=== PATIENT | female | born 1990 | race Caucasian/White ===

== ENCOUNTER 2019-10-10 23:22 | Emergency (ER) | payer MEDICAID, SELFPAY ==
[2019-10-10 23:53] VITALS: BP 110/66; PULSE 106; RESP 18; TEMP 37.3; O2SAT 99; BMI 22.3
--- NOTE | 2019-10-11 00:34 | ED_ITS ---
HPI - General Adult General: Chief complaint: Upper Respiratory Infection Stated complaint: Body aches, SAMPSON, 6 weeks preg, abd pain Time Seen by Provider: 10/11/19 00:34 History of Present Illness: HPI narrative: Patient complains of cough last few days muscle aches chills slight fever patient is 6 weeks . Patient complains of some abdominal discomfort. Patient denies any vaginal bleeding vaginal discharge or pelvic pain. Patient is a smoker. Patient does have some nausea but is able to keep fluids down has lost her appetite. Was placed on Reglan by Dr. León Merrill for her nausea vomiting. Patient is not taking that medication. MD complaint: cough Onset (ago): day(s) Severity: moderate Associated symptoms: Reports cough, decreased appetite, fevers/chills and nausea; Deny chest pain, dyspnea, headache(s) or rash Review of Systems Const: Denies: fever, chills or body aches Eyes: Denies: change in vision or blurry vision ENMT: Denies: throat pain or nasal congestion Card: Denies: chest pain or shortness of breath on exertion Resp: Reports: non-productive cough and chest congestion; Denies: shortness of breath or productive cough GI: Reports: nausea Musc: Denies: extremity pain Skin/Breast: Denies: rash Neuro: Denies: headache Psych: Denies: anxiety or depression Fede/Lymph: Denies: easy bruising PFSH ED PFSH: Statuses (acute, chronic, etc) shown below reflect problem list status as previously entered and may not be historically accurate Social History Smoking and tobacco status: current every day smoker Female Reproductive History: Date of last menstrual period: 09/04/19 Physical Exam Const: COMMON NORMALS: no apparent distress, average body habitus and oriented x3 HENMT: COMMON NORMALS: normocephalic HEAD & SCALP: normal to inspection and normocephalic FACE & SINUS: normal facial exam Eye: COMMON NORMALS: conjunctivae normal GENERAL EYE: normal appearance of both eyes CONJUNCTIVA: Yes conjunctivae normal Neck/C-Spine: COMMON NORMALS: no JVD Chest: COMMONS NORMALS: inspection of chest normal Resp: COMMON NORMALS: normal respiratory effort AUSCULTATION: rhonchi (mild) lower bilaterally Cardio: COMMON NORMALS: no JVD, regular rate and regular rhythm RATE: regular rate RHYTHM: regular rhythm GI: COMMON NORMALS: normal to inspection, nondistended, normoactive bowel s ounds Extremity: COMMON NORMALS: normal to inspection and full ROM Neuro: COMMON NORMALS: oriented x3 Course Vital Signs: Vital signs: Vital Signs Temperature 99.2 F 10/10/19 23:53 Pulse Rate 106 H 10/10/19 23:53 Respiratory Rate 18 10/10/19 23:53 Blood Pressure 110/66 10/10/19 23:53 Pulse Oximetry 99 10/10/19 23:53 Discharge Plan Discharge Prescriptions: No Action 28 mg iron- 800 mcg Tablet 1 tab PO DAILY RF: 0 Coding Level of Care Code ED Senior Systems Developer for Messi Ramírez
[2019-10-11 00:41] VITALS: BP 120/79; PULSE 102; RESP 20; O2SAT 98
[2019-10-11] MEDS: ondansetron 2 mg/ML SDV 2 mL 4 MG IVP (00:55)
[2019-10-11] MEDS: sodium chloride 0.9% 1,000 ML 999 ML IV (00:56)
[2019-10-11 01:12] LABS: Basophils # 0.1 10^3/uL (0.0-0.1); Basophils % 0.6 %; Eosinophils # 0.1 10^3/uL (0.0-0.8); Eosinophils % 1.7 %; Hematocrit 37.4 % (37.0-47.0); Hemoglobin 12.9 g/dL (11.5-15.3); Lymphocytes # 2.6 10^3/uL (0.8-4.8); Lymphocytes % 31.7 %; Mean Corpuscular HGB Conc 34.5 g/dL (30.0-36.0); Mean Corpuscular Hemoglobin 31.7 pg (28.0-34.0); Mean Corpuscular Volume 91.9 fL (81-99); Mean Platelet Volume 10.7 fL (7.4-10.4); Monocytes # 0.4 10^3/uL (0.2-0.9); Monocytes % 4.9 %; Neutrophils # 5.1 10^3/uL (1.8-7.7); Neutrophils % 60.9 %; Nucleated Red Blood Cells % 0 %; Platelet Count 169 10^3/cmm (130-400); Red Blood Count 4.07 10^6/uL (4.1-5.3); Red Cell Distribution Width 11.3 % (12.1-15.1); White Blood Count 8.3 10^3/uL (4.0-10.0)
[2019-10-11 01:15] LABS: Alanine Aminotransferase 19 U/L (0-33); Albumin Level 4.3 g/dL (3.5-5.2); Alkaline Phosphatase 85 IU/L (35-105); Anion Gap 15.6 (5-19); Blood Urea Nitrogen 7 mg/dL (6-20); Calcium 9.6 mg/Dl (8.6-10.0); Carbon Dioxide 23 mmol/L (22-29); Chloride 99 mmol/L (98-107); Globulin 2.9 g/dL (1.3-4.6); Glomerular Filtration Rate 146.9 mL/min (90-130); Glucose 95 mg/dL (74-109); Potassium 3.6 mmol/L (3.5-5.1); Sodium 134 mmol/L (136-145); Total Bilirubin 0.3 mg/dL (0.15-1.2); Total Protein 7.2 g/dL (6.6-8.7)
[2019-10-11 01:37] LABS: Add Urine Microscopic? NO
[2019-10-11 01:38] LABS: Bilirubin Urine Neg (NEGATIVE); Blood Urine Neg (Negative); Glucose Urine UA Norm (Normal); Ketones Urine Negative (Negative); Leukocyte Esterase Urine Negative (Negative); Nitrate Urine Negative (Negative); Protein Urine Neg (Negative); Urine Appearance Clear (CLEAR); Urine Color Yellow (Yellow); Urobilinogen Urine Norm (Negative); pH Urine 6.5 (5-7)
[2019-10-11 01:54] LABS: Aspartate Amino Transferase 26 U/L (0-32)
[2019-10-11 02:03] VITALS: BP 120/79; PULSE 102; RESP 18; TEMP 36.8; O2SAT 99
== END 2019-10-11 02:08 | disposition home or self-care (01) ==
PROVIDERS: Emergency Provider Nurse Practitioner Family
DX: O26.891 Other specified pregnancy related conditions, first trimester (principal); R10.9 Unspecified abdominal pain; R50.9 Fever, unspecified; Z3A.01 Less than 8 weeks gestation of pregnancy; O99.331 Smoking (tobacco) complicating pregnancy, first trimester; F17.210 Nicotine dependence, cigarettes, uncomplicated
CPT/HCPCS: 80053; 81003; 85025; 96360; 96374; 96375; 99282; J2405; J7030

== ENCOUNTER 2019-12-14 18:00 | Emergency (ER) | payer MEDICAID, SELFPAY ==
[2019-12-14 17:43] VITALS: BMI 23.7
[2019-12-14 17:49] VITALS: BP 122/57; PULSE 88; RESP 18; TEMP 37; O2SAT 99
--- NOTE | 2019-12-14 18:12 | ED_ITS ---
Entered by Ivory Baca, acting as scribe for HPI - General: Chief complaint: OB/Uterine Contractions Stated complaint: ABDOMINAL PAIN/ NO BABY MOVEMENT Time Seen by Provider: 12/14/19 18:12 Source: patient Mode of arrival: ambulatory Limitations: no limitations History of Present Illness: HPI Narrative: 29 yo female presents with abdomen cramping. pt states this started today. pt states she was seen at [facility] today and referred to ED for a ultrasound and check the baby out due to vaginal clear discharge. pt states this is her 7 and she lost two children, 3 living. pt denies any other symptoms at this time. MD Complaint: vaginal discharge and other (low heart rate on baby- pt is ) Onset (ago): day(s) Pain Consistency: constant Location: abdomen Severity: mild Quality: Cramping Radiation: abdomen Relieving factors: none Exacerbating factors: none Vaginal discharge: clear and other (watery) Vaginal bleeding: none Date of Last Menstrual Period: 09/10/19 Patient : Yes care: followed by OB Associated symptoms: Reports abdominal pain (cramping) and rash; Deny headache(s) Review of Systems General: Reports: 10 or more systems reviewed and unremarkable except in HPI and below Const: Denies: fever or chills Eyes: Denies: change in vision ENMT: Denies: throat pain Card: Denies: chest pain Resp: Denies: shortness of breath GI: Reports: abdominal pain (cramping) Musc: Denies: muscle weakness Skin/Breast: Denies: rash Neuro: Denies: headache Psych: Denies: hopelessness or suicidal ideation Endo: Denies: excessive urination Fede/Lymph: Denies: easy bruising or easy bleeding All/Imm: Denies: hives PFSH ED PFSH: Social History Smoking and tobacco status: current every day smoker Female Reproductive History: Date of last menstrual period: 09/10/19 Physical Exam Const: COMMON NORMALS: no apparent distress, oriented x3, alert and well nourished HENMT: COMMON NORMALS: normocephalic and external nose normal HEAD & SCALP: normocephalic NOSE: external nose normal MOUTH: no trismus Eye: COMMON NORMALS: EOMs intact bilaterally and conjunctivae normal CONJUNCTIVA: Yes conjunctivae normal Neck/C-Spine: COMMON NORMALS: full ROM, no lymphadenopathy and supple CERVICAL SPINE: Yes cervical ROM normal Lymph: LYMPHATIC: no lymphadenopathy noted Resp: COMMON NORMALS: normal respiratory effort, no retractions, no use of accessory muscles and clear to auscultation bilaterally EFFORT & INSPECTION: Yes able to speak in complete sentences AUSCULTATION: clear to auscultation bilaterally Cardio: COMMON NORMALS: regular rate and regular rhythm RATE: regular rate RHYTHM: regular rhythm Back/Pelvis: OTHER: Normal range of motion Extremity: GENERAL: Yes normal exam except as noted Neuro: COMMON NORMALS: oriented x3 and CN's II-XII intact bilaterally SENSORIUM/ORIENTATION: Yes alert SPEECH: speech normal Psych: COMMON NORMALS: mental status grossly normal Skin: COMMON NORMALS: no rashes or lesions noted GENERAL SKIN EXAM: no rashes or lesions noted Course Vital Signs: Vital signs: Vital Signs Temperature 98.6 F 12/14/19 17:49 Pulse Rate 88 12/14/19 17:49 Respiratory Rate 18 12/14/19 17:49 Blood Pressure 122/57 12/14/19 17:49 Pulse Oximetry 99 12/14/19 17:49 MDM - OB/Uterine Contractions MDM Narrative: Medical decision making narrative: Normal ultrasound, see radiologist report. Patient reassured Lab Data: Attestation: I reviewed the patient's lab results. Labs: Lab Results 12/14/19 12/14/19 Range/Units 18:10 19:20 WBC 9.8 (4.0-10.0) 10^3/ uL RBC 4.11 (4.1-5.3) 10^6/u L Hgb 12.7 (11.5-15.3) g/dL Hct 37.8 (37.0-47.0) % MCV 92.0 (81-99) fL MCH 30.9 (28.0-34.0) pg MCHC 33.6 (30.0-36.0) g/dL RDW 11.9 L (12.1-15.1) % Plt Count 204 (130-400) 10^3/c mm MPV 10.7 H (7.4-10.4) fL Neut % (Auto) 61.4 % Lymph % (Auto) 32.9 % [place] % (Auto) 3.8 % Eos % (Auto) 1.2 % Baso % (Auto) 0.3 % Neut # (Auto) 6.0 (1.8-7.7) 10^3/u L Lymph # (Auto) 3.2 (0.8-4.8) 10^3/u L [place] # (Auto) 0.4 (0.2-0.9) 10^3/u L Eos # (Auto) 0.1 (0.0-0.8) 10^3/u L Baso # (Auto) 0.0 (0.0-0.1) 10^3/u L Nucleated RBC % (a uto) 0 % Nucleated RBCs # 0.0 /100WBC Urine Color Yellow (Yellow) Urine Appearance Sl cloudy A (CLEAR) Urine pH 7 (5-7) Ur Specific Gravit y 1.005 (1.005-1.030) Urine Protein Neg (Negative) Urine Glucose (UA) Norm (Normal) Urine Ketones Negative (Negative) Urine Blood Neg (Negative) Urine Nitrate Negative (Negative) Urine Bilirubin Neg (NEGATIVE) Urine Urobilinogen Norm (Negative) mg/dL Ur Leukocyte Zulema ase Negative (Negative) Urine RBC 0-4 H (0-2) /hpf Urine WBC 0-4 H (0-5) /hpf Ur Squamous Epith Cells 5-10 H (0-5) Urine Bacteria 1+ H (NONE) Imaging Data^: US: Radiologist's impression: Signed Patient: Katia Red #: [id number] : 1990Acct#:[id number] Age/Sex: 29 / FADM Date: 12/14/19 Loc: ERRoom/Bed: Attending Dr: Ordering Provider/Ordering MD: Evangelina Spain MD Date of Service: 12/14/19 Procedure(s): US OB limited [id number] Accession Number(s): [id number] Report Number: [id number] PROCEDURE INFORMATION: Exam: US , Limited Exam date and time: 12/14/2019 6:58 PM Age: 29 years old Clinical indication: Lmp or gestational age (in weeks): 14w6d; Other: Mom felt leaking af; ; Patient HX: Mother felt release of clear fluid a short time ago. ; Additional info: ? Leaking fluid 15 weeks TECHNIQUE: Imaging protocol: Real-time ultrasound of the maternal uterus with image documentation. Exam focused on the clinical indication. COMPARISON: No relevant prior studies available. FINDINGS: GESTATION: Gestation: There is a single live intrauterine gestation. Yolk sac is not visualized. Heart rate: The heart rate is 157 bpm. Presentation: Fetus is in breech presentation. Placenta: The visualized placenta is unremarkable. BIOMETRY: Estimated gestational age: The calculated gestational age is 14 weeks 6 days. No anomalies are identified although anatomy is limited due to the early gestational age. Estimated due date: The calculated DEB is June 07, 2020 Estimated weight: Estimated weight is 107 g. MATERNAL: Cervix: The cervix is closed and measuring 3.9 cm in length. Right adnexa: The maternal right ovary is unremarkable. The left ovary is not visualized but the left adnexa is unremarkable. Intraperitoneal: No free fluid in the pelvis. US/ OB limited [id number] IMPRESSION: 1. The cervix is closed and measuring 3.9 cm in length. 2. Unremarkable single live intrauterine gestation with good cardiac activity. Dictated By:Angelita Gerber Signed By:Kali Gerber Date/Time:12/14/191933 Discharge Plan Discharge Patient Disposition: Home, Self-Care Clinical Impression: Condition: Stable Prescriptions: No Action Tylenol 325 mg Tablet 325 mg PO QID PRN (Reason: Pain) RF: 0 Miralax 17 gram Powder In Packet 17 g PO DAILY RF: 0 docusate sodium 100 mg capsule 100 mg PO DAILY RF: 0 PNV [id number] [] 28 mg iron- 800 mcg Tablet 1 tab PO DAILY RF: 0 Referrals: Denise Merrill DO [Primary Care Provider] - Discharge Activity: Resume usual activity Patient Instructions: Activity Restrictions/Additional Instructions: Keep alll appointments with your OB provider Coding Level of Care Code ED Video Network Engineer for Chg Fwd Exam Comprehensive The documentation recorded by the Keven priest Bridget Annette, accurately reflects the service I personally performed and the decisions made by Grabiel pinedo Megan, MD Dec 14, 2019 18:00
--- NOTE | 2019-12-14 18:17 | USR_ITS ---
PROCEDURE INFORMATION: Exam: US , Limited Exam date and time: 12/14/2019 6:58 PM Age: 29 years old Clinical indication: Lmp or gestational age (in weeks): 14w6d; Other: Mom felt leaking af; ; Patient HX: Mother felt release of clear fluid a short time ago. ; Additional info: ? Leaking fluid 15 weeks TECHNIQUE: Imaging protocol: Real-time ultrasound of the maternal uterus with image documentation. Exam focused on the clinical indication. COMPARISON: No relevant prior studies available. FINDINGS: GESTATION: Gestation: There is a single live intrauterine gestation. Yolk sac is not visualized. Heart rate: The heart rate is 157 bpm. Presentation: Fetus is in breech presentation. Placenta: The visualized placenta is unremarkable. BIOMETRY: Estimated gestational age: The calculated gestational age is 14 weeks 6 days. No anomalies are identified although anatomy is limited due to the early gestational age. Estimated due date: The calculated DEB is June 07, 2020 Estimated weight: Estimated weight is 107 g. MATERNAL: Cervix: The cervix is closed and measuring 3.9 cm in length. Right adnexa: The maternal right ovary is unremarkable. The left ovary is not visualized but the left adnexa is unremarkable. Intraperitoneal: No free fluid in the pelvis. US/US OB limited [id number] IMPRESSION: 1. The cervix is closed and measuring 3.9 cm in length. 2. Unremarkable single live intrauterine gestation with good cardiac activity.
[2019-12-14 18:48] LABS: Add Urine Microscopic? YES; Bacteria Urine 1+; Bilirubin Urine Neg (NEGATIVE); Blood Urine Neg (Negative); Glucose Urine UA Norm (Normal); Ketones Urine Negative (Negative); Leukocyte Esterase Urine Negative (Negative); Nitrate Urine Negative (Negative); Protein Urine Neg (Negative); RBC Urine 0-4 /hpf (0-2); Specific Gravity, Urine 1.005 (1.005-1.030); Urine Color Yellow (Yellow); Urobilinogen Urine Norm (Negative); WBC Urine 0-4 /hpf (0-5); pH Urine 7 (5-7)
[2019-12-14 19:28] LABS: Basophils % 0.3 %; Eosinophils # 0.1 10^3/uL (0.0-0.8); Eosinophils % 1.2 %; Hematocrit 37.8 % (37.0-47.0); Hemoglobin 12.7 g/dL (11.5-15.3); Lymphocytes # 3.2 10^3/uL (0.8-4.8); Lymphocytes % 32.9 %; Mean Corpuscular HGB Conc 33.6 g/dL (30.0-36.0); Mean Corpuscular Hemoglobin 30.9 pg (28.0-34.0); Mean Platelet Volume 10.7 fL (7.4-10.4); Monocytes # 0.4 10^3/uL (0.2-0.9); Monocytes % 3.8 %; Neutrophils % 61.4 %; Nucleated Red Blood Cells % 0 %; Platelet Count 204 10^3/cmm (130-400); Red Blood Count 4.11 10^6/uL (4.1-5.3); Red Cell Distribution Width 11.9 % (12.1-15.1); White Blood Count 9.8 10^3/uL (4.0-10.0)
[2019-12-14 19:47] LABS: Anion Gap 15.8 (5-19); Blood Urea Nitrogen 9 mg/dL (6-20); Calcium 9.8 mg/dL (8.5-10.5); Carbon Dioxide 25 mmol/L (22-29); Chloride 100 mmol/L (98-107); Glomerular Filtration Rate 146.9 mL/min (90-130); Glucose 86 mg/dL (65-115); Osmolality Calculated 279 mOsm/kg (285-295); Potassium 3.8 mmol/L (3.5-5.1); Sodium 137 mmol/L (136-145)
[2019-12-14 20:06] VITALS: BP 126/62; PULSE 76; RESP 16; TEMP 36.8; O2SAT 99
== END 2019-12-14 20:07 | disposition home or self-care (01) ==
PROVIDERS: Emergency Provider Emergency Medicine; PCP Obstetrics & Gynecology
DX: O26.892 Other specified pregnancy related conditions, second trimester (principal); R10.9 Unspecified abdominal pain; N89.8 Other specified noninflammatory disorders of vagina; O99.332 Smoking (tobacco) complicating pregnancy, second trimester; Z3A.14 14 weeks gestation of pregnancy
CPT/HCPCS: 12345; 76815; 80048; 81001; 85025; 87086; 99283; A9270

== ENCOUNTER → 2024-03-19 17:05 | Outpatient (BNVA) | payer SELFPAY | PROVIDERS: Visit Provider Emergency Medicine | DX: Z34.90 Encounter for supervision of normal pregnancy, unspecified, unspecified trimester | CPT/HCPCS: 84702 ==

== ENCOUNTER → 2024-03-21 10:34 | Outpatient (BNVA) | payer SELFPAY | PROVIDERS: Referring Provider Emergency Medicine; Visit Provider Emergency Medicine | DX: Z87.59 Personal history of other complications of pregnancy, childbirth and the puerperium (principal) | CPT/HCPCS: 84702 ==

== ENCOUNTER 2025-08-28 17:32 | Emergency (ER) | payer SELFPAY ==
[2025-08-28 17:35] VITALS: BP 103/65; PULSE 103; TEMP 36.8; O2SAT 98; BMI 22.1
--- OUTSIDE RECORDS SUMMARY | 2025-08-28 17:39 | XMS_ITS | Encounter Summary ---
Author Organization [facility] Address [address] [place] [address] Care Team Providers Care Dirt Bike Mechanic Name Role Phone Lance Morejon MD Primary Care Provider [phone] Encounter Details Date Type Department Care Team (Latest Contact Info) Description 01/04/2005 Outpatient Historical [facility] [place] [address] [address] Radha Slater, VIDEO GAME MAKER NO ADDRESS ON FILE HEADACHE (Primary Dx); Dysfunct eustachian tube; ESOPHAGEAL REFLUX Social History Tobacco Use Types Packs/Day Years Used Date Smoking Tobacco: Never Assessed Comments Unknown Sex and Gender Information Value Date Recorded Sex Assigned at Not on file Legal Sex Female 3:00 AM CAREER DEVELOPMENT ENGINEER Gender Identity Not on file Sexual Orientation Not on file documented as of this encounter Plan of Treatment Not on file documented as of this encounter Visit Diagnoses Diagnosis Headache(784.0)- Primary Headache Dysfunct eustachian tube Dysfunction of Eustachian tube Esophageal reflux documented in this encounter Care Teams Dirt Bike Mechanic Relationship Specialty Start Date End Date Lance Morejon MD [address] [place] [address] PCP - General 02/13/08 documented as of this encounter
--- OUTSIDE RECORDS SUMMARY | 2025-08-28 17:39 | XMS_ITS | Encounter Summary ---
Author Organization [facility] Address [address] [place] [address] Care Team Providers Care Medical Case Worker Name Role Phone Lance Morejon MD Primary Care Provider [phone] Encounter Details Date Type Department Care Team (Latest Contact Info) Description 11/16/2002 Outpatient Historical [facility] Medicine [address] [address] Luis Santos MD NO ADDRESS ON FILE Pneumococcal pneumonia (Primary Dx) Social History Tobacco Use Types Packs/Day Years Used Date Smoking Tobacco: Never Assessed Comments Unknown Sex and Gender Information Value Date Recorded Sex Assigned at Not on file Legal Sex Female 3:00 AM JAVA APPLICATION ENGINEER Gender Identity Not on file Sexual Orientation Not on file documented as of this encounter Plan of Treatment Not on file documented as of this encounter Visit Diagnoses Diagnosis Pneumococcal pneumonia- Primary Pneumococcal pneumonia (streptococcus pneumoniae pneumonia) documented in this encounter Care Teams Medical Case Worker Relationship Specialty Start Date End Date Lance Morejon MD [address] [place] [address] PCP - General 02/13/08 documented as of this encounter
--- OUTSIDE RECORDS SUMMARY | 2025-08-28 17:39 | XMS_ITS | Encounter Summary ---
Author Organization [facility] Address [address] [place] [address] Care Team Providers Care Senior Behavioral Scientist Name Role Phone Lance Morejon MD Primary Care Provider [phone] Encounter Details Date Type Department Care Team (Latest Contact Info) Description 10/22/2004 Outpatient Historical [facility] [place] [address] [place] [id number] Isma Phan MD NO ADDRESS ON FILE DEPRESSIVE DISORDER NEC (Primary Dx); ACNE NEC Social History Tobacco Use Types Packs/Day Years Used Date Smoking Tobacco: Never Assessed Comments Unknown Sex and Gender Information Value Date Recorded Sex Assigned at Not on file Legal Sex Female 3:00 AM BOBJ DEVELOPER Gender Identity Not on file Sexual Orientation Not on file documented as of this encounter Plan of Treatment Not on file documented as of this encounter Visit Diagnoses Diagnosis Depressive disorder, not elsewhere classified- Primary Other acne documented in this encounter Care Teams Senior Behavioral Scientist Relationship Specialty Start Date End Date Lance Morejon MD [address] [place] [address] PCP - General 02/13/08 documented as of this encounter
--- OUTSIDE RECORDS SUMMARY | 2025-08-28 17:39 | XMS_ITS | Encounter Summary ---
Author Organization [facility] Address [address] [place] [address] Care Team Providers Care Patient Resource Specialist Name Role Phone Lance Morejon MD Primary Care Provider [phone] Encounter Details Date Type Department Care Team (Latest Contact Info) Description 10/22/[address] [facility] Medicine [address] [address] Luis Santos MD NO ADDRESS ON FILE ACUTE URI NOS (Primary Dx); ACUTE BRONCHITIS; DIARRHEA NOS Social History Tobacco Use Types Packs/Day Years Used Date Smoking Tobacco: Never Assessed Comments Unknown Sex and Gender Information Value Date Recorded Sex Assigned at Not on file Legal Sex Female 3:00 AM INSURANCE RISK SURVEYOR Gender Identity Not on file Sexual Orientation Not on file documented as of this encounter Plan of Treatment Not on file documented as of this encounter Visit Diagnoses Diagnosis Acute upper respiratory infections of unspecified site- Primary Acute bronchitis Diarrhea documented in this encounter Care Teams Patient Resource Specialist Relationship Specialty Start Date End Date Lance Morejon MD [address] [place] [address] PCP - General 02/13/08 documented as of this encounter
--- OUTSIDE RECORDS SUMMARY | 2025-08-28 17:39 | XMS_ITS | Encounter Summary ---
Author Organization [facility] Address [address] [place] [address] Care Team Providers Care Umbrella Tipper Machine Name Role Phone Lance Morejon MD Primary Care Provider [phone] Encounter Details Date Type Department Care Team (Latest Contact Info) Description 01/13/[address] [facility] Medicine [place] [address] [address] Radha Slater, TRUST MANAGER ASSISTANT NO ADDRESS ON FILE Acute Pharyngitis (Primary Dx); Acute Upper Respiratory Infections of Unspecified Site Social History Tobacco Use Types Packs/Day Years Used Date Smoking Tobacco: Never Assessed Comments Unknown Sex and Gender Information Value Date Recorded Sex Assigned at Not on file Legal Sex Female 3:00 AM SIGNWRITER Gender Identity Not on file Sexual Orientation Not on file documented as of this encounter Plan of Treatment Not on file documented as of this encounter Visit Diagnoses Diagnosis Acute pharyngitis- Primary Acute upper respiratory infections of unspecified site documented in this encounter Care Teams Umbrella Tipper Machine Relationship Specialty Start Date End Date Lance Morejon MD [address] [place] [address] PCP - General 02/13/08 documented as of this encounter
--- OUTSIDE RECORDS SUMMARY | 2025-08-28 17:39 | XMS_ITS | Encounter Summary ---
Author Organization [facility] Address [address] [place] [address] Care Team Providers Care Blue Split Trimmer Name Role Phone Lance Morejon MD Primary Care Provider [phone] Encounter Details Date Type Department Care Team (Latest Contact Info) Description 05/10/2006 Outpatient Historical [facility] Medicine [place] [address] [address] Radha Slater, ASSISTANT GOLF COACH NO ADDRESS ON FILE Acute Pharyngitis (Primary Dx); Acute Upper Respiratory Infections of Unspecified Site Social History Tobacco Use Types Packs/Day Years Used Date Smoking Tobacco: Never Assessed Comments Unknown Sex and Gender Information Value Date Recorded Sex Assigned at Not on file Legal Sex Female 3:00 AM ANALYTICAL STRATEGIST Gender Identity Not on file Sexual Orientation Not on file documented as of this encounter Plan of Treatment Not on file documented as of this encounter Visit Diagnoses Diagnosis Acute pharyngitis- Primary Acute upper respiratory infections of unspecified site documented in this encounter Care Teams Blue Split Trimmer Relationship Specialty Start Date End Date Lance Morejon MD [address] [place] [address] PCP - General 02/13/08 documented as of this encounter
--- OUTSIDE RECORDS SUMMARY | 2025-08-28 17:39 | XMS_ITS | Encounter Summary ---
Author Organization [facility] Address [address] [place] [address] Care Team Providers Care Supervisor Wrapping Room Name Role Phone Lance Morejon MD Primary Care Provider [phone] Encounter Details Date Type Department Care Team (Latest Contact Info) Description 09/23/2004 Outpatient [facility] Medicine [address] [address] Radha Slater, GRADUATE STUDIES DEAN NO ADDRESS ON FILE ACUTE URI NOS (Primary Dx); DEPRESSIVE DISORDER NEC Social History Tobacco Use Types Packs/Day Years Used Date Smoking Tobacco: Never Assessed Comments Unknown Sex and Gender Information Value Date Recorded Sex Assigned at Not on file Legal Sex Female 3:00 AM SUBCONTRACT ADMINISTRATOR Gender Identity Not on file Sexual Orientation Not on file documented as of this encounter Plan of Treatment Not on file documented as of this encounter Visit Diagnoses Diagnosis Acute upper respiratory infections of unspecified site- Primary Depressive disorder, not elsewhere classified documented in this encounter Care Teams Supervisor Wrapping Room Relationship Specialty Start Date End Date Lance Morejon MD [address] [place] [address] PCP - General 02/13/08 documented as of this encounter
--- OUTSIDE RECORDS SUMMARY | 2025-08-28 17:39 | XMS_ITS | Encounter Summary ---
Author Organization [facility] Address [address] [place] [address] Care Team Providers Care [employer] Principal Name Role Phone Lance Morejon MD Primary Care Provider [phone] Encounter Details Date Type Department Care Team (Latest Contact Info) Description 05/29/2002 Outpatient Historical [facility] Medicine [address] [address] Radha Slater, MANAGER ENDOSCOPY NO ADDRESS ON FILE ACUTE PHARYNGITIS (Primary Dx); ACUTE BRONCHITIS; DIARRHEA NOS; ACUTE URI NOS Social History Tobacco Use Types Packs/Day Years Used Date Smoking Tobacco: Never Assessed Comments Unknown Sex and Gender Information Value Date Recorded Sex Assigned at Not on file Legal Sex Female 3:00 AM PRECISION INSTRUMENT MAKER Gender Identity Not on file Sexual Orientation Not on file documented as of this encounter Plan of Treatment Not on file documented as of this encounter Visit Diagnoses Diagnosis Acute pharyngitis- Primary Acute bronchitis Diarrhea Acute upper respiratory infections of unspecified site documented in this encounter Care Teams [employer] Principal Relationship Specialty Start Date End Date Lance Morejon MD [address] [place] [address] PCP - General 02/13/08 documented as of this encounter
--- OUTSIDE RECORDS SUMMARY | 2025-08-28 17:39 | XMS_ITS | Encounter Summary ---
Author Organization [facility] Address [address] [place] [address] Care Team Providers Care Mold Operator Name Role Phone Lance Morejon MD Primary Care Provider [phone] Encounter Details Date Type Department Care Team (Latest Contact Info) Description 12/02/2005 Outpatient Historical [facility] Medicine [address] [address] Radha Slater, PIPE STEM SAWYER NO ADDRESS ON FILE ACUTE SINUSITIS NOS (Primary Dx) Social History Tobacco Use Types Packs/Day Years Used Date Smoking Tobacco: Never Assessed Comments Unknown Sex and Gender Information Value Date Recorded Sex Assigned at Not on file Legal Sex Female 3:00 AM STATION INSPECTOR Gender Identity Not on file Sexual Orientation Not on file documented as of this encounter Plan of Treatment Not on file documented as of this encounter Visit Diagnoses Diagnosis Acute sinusitis, unspecified- Primary documented in this encounter Care Teams Mold Operator Relationship Specialty Start Date End Date Lance Morejon MD [address] [place] [address] PCP - General 02/13/08 documented as of this encounter
--- OUTSIDE RECORDS SUMMARY | 2025-08-28 17:39 | XMS_ITS | Encounter Summary ---
Author Organization [facility] Address [address] [place] [address] Care Team Providers Care Reproductive Surgeon Name Role Phone Lance Morejon MD Primary Care Provider [phone] Encounter Details Date Type Department Care Team (Latest Contact Info) Description 06/21/2002 Outpatient Historical [facility] Medicine [address] [address] Luis Santos MD NO ADDRESS ON FILE VAGINITIS NOS (Primary Dx) Social History Tobacco Use Types Packs/Day Years Used Date Smoking Tobacco: Never Assessed Comments Unknown Sex and Gender Information Value Date Recorded Sex Assigned at Not on file Legal Sex Female 3:00 AM CULINARY ARTS INSTRUCTOR Gender Identity Not on file Sexual Orientation Not on file documented as of this encounter Plan of Treatment Not on file documented as of this encounter Visit Diagnoses Diagnosis Vaginitis and vulvovaginitis, unspecified- Primary documented in this encounter Care Teams Reproductive Surgeon Relationship Specialty Start Date End Date Lance Morejon MD [address] [place] [address] PCP - General 02/13/08 documented as of this encounter
--- OUTSIDE RECORDS SUMMARY | 2025-08-28 17:39 | XMS_ITS | Encounter Summary ---
Author Organization [facility] Address [address] [place] [address] Care Team Providers Care Factory Representative Name Role Phone Lance Morejon MD Primary Care Provider [phone] Encounter Details Date Type Department Care Team (Latest Contact Info) Description 06/11/2002 Outpatient Historical [facility] Medicine [address] [address] Luis Santos MD NO ADDRESS ON FILE INFEC OTITIS EXTERNA NOS (Primary Dx); ACUTE SINUSITIS NOS; ACUTE CONJUNCTIVITIS NOS Social History Tobacco Use Types Packs/Day Years Used Date Smoking Tobacco: Never Assessed Comments Unknown Sex and Gender Information Value Date Recorded Sex Assigned at Not on file Legal Sex Female 3:00 AM WORKERS' COMPENSATION CLAIMS SUPERVISOR Gender Identity Not on file Sexual Orientation Not on file documented as of this encounter Plan of Treatment Not on file documented as of this encounter Visit Diagnoses Diagnosis Infective otitis externa, unspecified- Primary Acute sinusitis, unspecified Acute conjunctivitis, unspecified documented in this encounter Care Teams Factory Representative Relationship Specialty Start Date End Date Lance Morejon MD [address] [place] [address] PCP - General 02/13/08 documented as of this encounter
--- OUTSIDE RECORDS SUMMARY | 2025-08-28 17:39 | XMS_ITS | Encounter Summary ---
Author Organization [facility] Address [address] [place] [address] Care Team Providers Care Business Services Vice President Name Role Phone Lance Morejon MD Primary Care Provider [phone] Encounter Details Date Type Department Care Team (Latest Contact Info) Description 12/24/2003 Outpatient Historical [facility] Medicine [place] [address] Radha Slater, CHILD SUPPORT INVESTIGATOR NO ADDRESS ON FILE UNSPECIFIED VIRAL INFECTION (Primary Dx) Social History Tobacco Use Types Packs/Day Years Used Date Smoking Tobacco: Never Assessed Comments Unknown Sex and Gender Information Value Date Recorded Sex Assigned at Not on file Legal Sex Female 3:00 AM CERTIFIED DIALYSIS TECHNICIAN Gender Identity Not on file Sexual Orientation Not on file documented as of this encounter Plan of Treatment Not on file documented as of this encounter Visit Diagnoses Diagnosis Unspecified viral infection, in conditions classified elsewhere and of unspecified site- Primary documented in this encounter Care Teams Business Services Vice President Relationship Specialty Start Date End Date Lance Morejon MD [address] [place] [address] PCP - General 02/13/08 documented as of this encounter
--- OUTSIDE RECORDS SUMMARY | 2025-08-28 17:39 | XMS_ITS | Encounter Summary ---
Author Organization [facility] Address [address] [place] [address] Care Team Providers Care Food Prep Worker Name Role Phone Lance Morejon MD Primary Care Provider [phone] Encounter Details Date Type Department Care Team (Latest Contact Info) Description 10/04/[address] [facility] Medicine [address] [address] Luis Santos MD NO ADDRESS ON FILE CONJUNCTIVITIS NOS (Primary Dx); COUGH; ACUTE SINUSITIS NOS Social History Tobacco Use Types Packs/Day Years Used Date Smoking Tobacco: Never Assessed Comments Unknown Sex and Gender Information Value Date Recorded Sex Assigned at Not on file Legal Sex Female 3:00 AM LEADERSHIP DEVELOPMENT MANAGER Gender Identity Not on file Sexual Orientation Not on file documented as of this encounter Plan of Treatment Not on file documented as of this encounter Visit Diagnoses Diagnosis Conjunctivitis unspecified- Primary Conjunctivitis, unspecified Cough Acute sinusitis, unspecified documented in this encounter Care Teams Food Prep Worker Relationship Specialty Start Date End Date Lance Morejon MD [address] [place] [address] PCP - General 02/13/08 documented as of this encounter
--- OUTSIDE RECORDS SUMMARY | 2025-08-28 17:39 | XMS_ITS | Encounter Summary ---
Author Organization [facility] Address [address] [place] [address] Care Team Providers Care Central Office Operator Name Role Phone Lance Morejon MD Primary Care Provider [phone] Encounter Details Date Type Department Care Team (Latest Contact Info) Description 06/24/2004 Outpatient Historical [facility] Family Medicine [place] [address] [phone] Mao Jensen Jr., MD [address] [place] [address] [address] [place] [address] ACUTE PHARYNGITIS (Primary Dx) Social History Tobacco Use Types Packs/Day Years Used Date Smoking Tobacco: Never Assessed Comments Unknown Sex and Gender Information Value Date Recorded Sex Assigned at Not on file Legal Sex Female 3:00 AM LION TAMER Gender Identity Not on file Sexual Orientation Not on file documented as of this encounter Plan of Treatment Not on file documented as of this encounter Visit Diagnoses Diagnosis Acute pharyngitis- Primary documented in this encounter Care Teams Central Office Operator Relationship Specialty Start Date End Date Lance Morejon MD [address] [place] [address] PCP - General 02/13/08 documented as of this encounter
--- OUTSIDE RECORDS SUMMARY | 2025-08-28 17:39 | XMS_ITS | Encounter Summary ---
Author Organization [facility] Address [address] [place] [address] Care Team Providers Care Carbon Accountant Name Role Phone Lance Morejon MD Primary Care Provider [phone] Encounter Details Date Type Department Care Team (Latest Contact Info) Description 08/12/2004 Outpatient Historical [facility] Medicine [address] [address] Radha Slater, SLURRY MIXER NO ADDRESS ON FILE ANXIETY STATE NOS (Primary Dx) Social History Tobacco Use Types Packs/Day Years Used Date Smoking Tobacco: Never Assessed Comments Unknown Sex and Gender Information Value Date Recorded Sex Assigned at Not on file Legal Sex Female 3:00 AM AUTOMATIC BUFFING WHEEL FORMER Gender Identity Not on file Sexual Orientation Not on file documented as of this encounter Plan of Treatment Not on file documented as of this encounter Visit Diagnoses Diagnosis Anxiety state, unspecified- Primary documented in this encounter Care Teams Carbon Accountant Relationship Specialty Start Date End Date Lance Morejon MD [address] [place] [address] PCP - General 02/13/08 documented as of this encounter
--- OUTSIDE RECORDS SUMMARY | 2025-08-28 17:39 | XMS_ITS | Encounter Summary ---
Author Organization [facility] Address [address] [place] [address] Care Team Providers Care Winding Machine Operator Name Role Phone Lance Morejon MD Primary Care Provider [phone] Reason for Visit * Reason Onset Date Comments Medication Refill 08/30/2012 Encounter Details Date Type Department Care Team (Late st Contact Info) Description 08/30/2012 Refill [facility] [address] [place] [address] Mychart, Generic Provider Social History Tobacco Use Types Packs/Day Years Used Date Smoking Tobacco: Every Day Cigarettes 0.1 4 Smokeless Tobacco: Never Comments:Down to three a day Alcohol Use Standard Drinks/Week Comments No 0 (1 standard drink = 0.6 oz pur e alcohol) Comments Unknown Sex and Gender Information Value Date Recorded Sex Assigned at Not on file Legal Sex Female 3:00 AM CAPSULE FILLER Gender Identity Not on file Sexual Orientation Not on file Occupation Industry Job Start Date Job End Date Not on file Not on file Not on file Not on file documented as of this encounter Plan of Treatment Not on file documented as of this encounter Visit Diagnoses Not on filedocumented in this encounter Care Teams Winding Machine Operator Relationship Specialty Start Date End Date Lance Morejon MD [address] [place] [address] PCP - General 02/13/08 documented as of this encounter
--- OUTSIDE RECORDS SUMMARY | 2025-08-28 17:39 | XMS_ITS | Encounter Summary ---
Author Organization [facility] Address [address] [place] [address] Care Team Providers Care Yarn Mercerizer Operator Helper Name Role Phone Lance Morejon MD Primary Care Provider [phone] Encounter Details Date Type Department Care Team (Late st Contact Info) Description 11/17/2002 Emergency [facility] Emergency Department [address] [place] [address] Bala Call MD [address] [place] [address] [address] [place] [address] BRONCHITIS NOS (Primary Dx) Social History Tobacco Use Types Packs/Day Years Used Date Smoking Tobacco: Never Assessed Comments Unknown Sex and Gender Information Value Date Recorded Sex Assigned at Not on file Legal Sex Female 3:00 AM TRAUMA THERAPIST Gender Identity Not on file Sexual Orientation Not on file documented as of this encounter Plan of Treatment Not on file documented as of this encounter Visit Diagnoses Diagnosis Bronchitis, not specified as acute or chronic- Primary documented in this encounter Care Teams Yarn Mercerizer Operator Helper Relationship Specialty Start Date End Date Lance Morejon MD [address] [place] [address] PCP - General 02/13/08 documented as of this encounter
--- OUTSIDE RECORDS SUMMARY | 2025-08-28 17:39 | XMS_ITS | Encounter Summary ---
Author Organization [facility] Address [address] [place] [address] Care Team Providers Care Fur Finisher Tailor Name Role Phone Lance Morejon MD Primary Care Provider [phone] Encounter Details Date Type Department Care Team (Latest Contact Info) Description 01/09/2003 Outpatient Historical [facility] Medicine [address] [address] Luis Santos MD NO ADDRESS ON FILE ACUTE URI NOS (Primary Dx) Social History Tobacco Use Types Packs/Day Years Used Date Smoking Tobacco: Never Assessed Comments Unknown Sex and Gender Information Value Date Recorded Sex Assigned at Not on file Legal Sex Female 3:00 AM WARDROBE STYLIST Gender Identity Not on file Sexual Orientation Not on file documented as of this encounter Plan of Treatment Not on file documented as of this encounter Visit Diagnoses Diagnosis Acute upper respiratory infections of unspecified site- Primary documented in this encounter Care Teams Fur Finisher Tailor Relationship Specialty Start Date End Date Lance Morejon MD [address] [place] [address] PCP - General 02/13/08 documented as of this encounter
--- OUTSIDE RECORDS SUMMARY | 2025-08-28 17:39 | XMS_ITS | Clinical Summary ---
Author Organization [facility] Address [address] [place] [address] Care Team Providers Care Formal Service Waiter Name Role Phone Lance Morejon MD Primary Care Provider [phone] Allergies Active Allergy Reactions Criticality Noted Date Comments Penicillins Rash Low 01/15/2008 Medications [id number] ORAL Take 1 Tab by mouth daily. Active ACETAMINOPHEN (TYLENOL 8 HOUR ORAL) Take 2 Tabs by mouth Daily LATE. Active Active Problems Problem Noted Date Diagnosed Date History of abnormal cervical Pap smear 5 Threatened , antepartum 02/15/2012 Supervision of other normal 11/27/2009 Tobacco Abuse: Quit 08/03/2009 Anxiety state 01/28/2009 Post depression 01/28/2009 FHx: congenital heart disease 07/02/2008 Overview (07/02/2008): Brother with hypoplastic left heart. Contact with or exposure to venereal disease Overview (07/02/2008): Boyfriend with HPV Resolved Problems Problem Noted Date Diagnosed Date Resolved Date Uterine size date discrepancy 01/06/2010 02/03/2010 Supervision of normal first 10/09/2008 11/15/2008 Bacterial vaginosis 07/02/2008 11/15/19 09 Immunizations Immunization Administration Dates Next Due Influenza Vaccine Split 3+ Yrs PF IM 09/10/2008 Family History Medical History Relation Name Comments Healthy Brother 1 Other Brother 2 deffects Healthy Father Other Father migraie surgery , pressur released Healthy Maternal Grandfather Healthy Maternal Grandmother Healthy Mother Healthy Paternal Grandfather Healthy Paternal Grandmother Healthy Sister Healthy Son 1 Other Son 1 Baby has eczema Healthy Son 2 Relation Name Status Comments Brother 1 Alive Brother 2 Father Alive Maternal Grandfather Alive Maternal Grandmother Alive Mother Alive Paternal Grandfather Alive Paternal Grandmother Alive Sister Alive Son 1 Alive Son 2 Alive Social History Tobacco Use Types Packs/Day Years Used Date Smoking Tobacco: Every Day Cigarettes 0.3 8 Smokeless Tobacco: Never Tobacco Cessation:Ready to Q uit: Yes; Counseling Given: Yes Comments:Down to three a day Alcohol Use Standard Drinks/Week Comments No 0 (1 standard drink = 0.6 oz pur e alcohol) Comments No Sex and Gender Information Value Date Recorded Sex Assigned at Not on file Legal Sex Female 3:00 AM BREAST SURGEON Gender Identity Not on file Sexual Orientation Not on file Occupation Industry Job Start Date Job End Date Not on file Not on file Not on file Not on file Last Filed Vital Signs Vital Sign Reading Time Taken Comments Blood Pressure 114/60 06/13/2015 1:48 PM CDT Pulse 78 10/31/2012 2:56 PM BREAST SURGEON Temperature 36.9 C (98.5 F) 10/31/2012 2:56 PM BREAST SURGEON Respiratory Rate 18 10/31/2012 2:56 PM BREAST SURGEON Oxygen Saturation 99% 10/25/2012 9:19 PM BREAST SURGEON Inhaled Oxygen Concentration - - Weight 63.2 kg (139 lb 6.4 oz) 06/13/2015 1:48 P M CDT Height 162.6 cm (5' 4 ) 06/13/2015 1:48 PM CDT Body Mass Index 23.93 06/13/2015 1:48 PM CDT Plan of Treatment Health Maintenance Due Date Last Done Comments DTAP/TDAP/TD VACCINES (1 - Tdap) 2010 HEPATITIS B VACCINES (1 of 3 - 19+ 3-dose series) 2010 HPV/Cotest (21-29) 04/17/2015 04/17/2010 HPV VACCINES (1 - 3-dose SCD M series) 2018 CERVICAL CANCER SCREENING 2021 HPV/Cotest (30-65) 2021 04/17/2010 PAP SMEAR 2021 02/19/2015, 04/02, 12/13/2008 INFLUENZA VACCINE (#1) 2025 09/10/2008 Procedures Procedure Name Priority Date/Time Associated Diagnosis Comments CERV/VAG CYTOPATH, THIN PREP MANAGER MARKETING Routine 02/19/2015 10:27 AM CDT CERV/VAG CYTOPATH, THIN PREP W/RFLX HPV Routine 04/17/2010 3:54 PM CDT from Last 3 Months or Most Recently Relevant to Health Maintenance Results * CERV/VAG CYTOPATH, THIN PREP MANAGER MARKETING (02/19/2015 10:27 AM CDT) PATHOLOGY/CY TOLOGY REPORT [facility] Anatomic Pathology Dept [facility] [facility] [address] Patient: PIERRE EDWARDS Accn No: [id number] , [id number] Collected: 02/19/2015 10:27:00 AM All cases except those with a DP prefix are performed by pathologists from [facility] at [facility]. Case type DP is performed by Dr. Nilo Souza, [facility], [facility], [address], [address] [address] (CLIA #[id number]) (Ph. [phone]). CYTOLOGY LINE TECHNICIAN FINAL REPORT - - MANAGER MARKETING PAP History Specimen Type: Endocervical Previous Pap History: None Provided Specimen Adequacy Satisfactory for interpretation. The smear shows sufficient numbers of endocervical or metaplastic cells. Diagnosis NEGATIVE FOR INTRAEPITHELIAL LESION OR MALIGNANCY. (Previously noted as Within Normal Limits) Crusher Screen Repairer/ EDR Pathologist: 03/03/15 Completed by: ALYX BROWN BSCT (ASCP) (Electronically signed by) 03/03/15 Comment Routine follow-up is suggested. Important Information About Pap Smears The Pap smear is associated with a low but well-documented and probably irreducible false negative rate of up to 10%. Additionally, the false positive rate for a diagnosis of invasive carcinoma or HSIL has been estimated to be approximately 1-10%. Therefore, any visible lesion on the cervix should be biopsied regardless of Pap smear findings. HPV Testing off the Thin Prep vial can be done as a means of further evaluating a Thin Prep Report. For information about ordering the HPV test, phone Virology at . Treatment or follow-up recommendations (if any) that are contained within this report are based upon general recommendations as contained in 2001 Consensus Guidelines For Cervical Cytological Abnormalities RAFI: January 24, 2002, and are provided as a general guideline rather than as a specific recommendation. Final decisions about the most appropriate treatment and follow-up should be made on an individualized basis by the treating physician in consultation with his/her patient. [facility] [place] [facility] 02/19/2015 10:2 7 AM CDT Lolis Taylor [facility] PATHOLOGY/CYTOLOGY ORDERABLES Edited Result - Final [facility] CLIA# [id number] [address] [place] [address] * CERV/VAG CYTOPATH, THIN PREP W/RFLX HPV (04/17/2010 3:54 PM CDT) [facility] THIN PREP CYTOLOGY REPORT REFLEX HPV [facility] Anatomic Pathology Dept [address] [place] [address] Patient: PIERRE DIEGO Accn No: [id number] , [id number] Collected: 04/17/2010 3:54:00 PM All cases except those with a DP prefix are performed by pathologists from [facility] at [facility]. Case type DP is performed by Dr. Nilo Souza, [facility], [facility], [facility], [address], [place] [address] (CLIA #[id number]) (Ph. [phone]). THIN PREP PAP - REFLEX HPV History Specimen Type: Endocervical LMP: None Provided Previous Pap History: None Provided Specimen Adequacy Satisfactory for interpretation. Shows sufficient numbers of endocervical or metaplastic cells. Diagnosis NEGATIVE FOR INTRAEPITHELIAL LESION OR MALIGNANCY. (Prevously noted as Within Normal Limits). Crusher Screen Repairer/ TREY Pathologist: 04/27/10 Completed by: BETH ANNA(ASCP) (Electronically signed by) 04/27/10 Comment Routine follow-up is suggested. Important Info About Pap Smears HPV Testing off the Thin Prep vial can be done as a means of further evaluating a Thin Prep Report. For information about ordering the HPV test, phone Cytology at . Treatment or follow-up recommendations (if any) that are considered within this report are based upon general recommendations as contained in 2001 Consensus Guidelines For Cervical Cytological Abnormalities RAFI: January 24, 2002, and are provided as a general guideline rather than as a specific recommendation. Final decisions about the most appropriate treatment and follow-up should be made on an individualized basis by the treating physician in consultation with his/her patient. [facility] 04/17/2010 3:54 PM CDT us Lolis Taylor PROPELLER DRIVEN AIRPLANE MECHANIC PATHOLOGY/CYTOLOGY ORDERABLES Edited INTERFACE SYSTEM Refer to clinic/hospital department [facility] CLIA# [id number] [address] [place] [address] from Last 3 Months or Most Recently Relevant to Health Maintenance Care Teams Formal Service Waiter Relationship Specialty Start Date End Date Lance Morejon MD [address] [place] [address] PCP - General 02/13/08
--- OUTSIDE RECORDS SUMMARY | 2025-08-28 17:39 | XMS_ITS | Encounter Summary ---
Author Organization [facility] Address [address] [place] [address] Care Team Providers Care Floor Hand Name Role Phone Lance Morejon MD Primary Care Provider [phone] Encounter Details Date Type Department Care Team (Latest Contact Info) Description 07/30/2004 Outpatient Historical [facility] Medicine [address] [address] Radha Slater, PUBLIC AREA SUPERVISOR NO ADDRESS ON FILE GENERALIZED ANXIETY DIS (Primary Dx) Social History Tobacco Use Types Packs/Day Years Used Date Smoking Tobacco: Never Assessed Comments Unknown Sex and Gender Information Value Date Recorded Sex Assigned at Not on file Legal Sex Female 3:00 AM BOAT HAND Gender Identity Not on file Sexual Orientation Not on file documented as of this encounter Plan of Treatment Not on file documented as of this encounter Visit Diagnoses Diagnosis Generalized anxiety disorder- Primary documented in this encounter Care Teams Floor Hand Relationship Specialty Start Date End Date Lance Morejon MD [address] [place] [address] PCP - General 02/13/08 documented as of this encounter
--- OUTSIDE RECORDS SUMMARY | 2025-08-28 17:39 | XMS_ITS | Encounter Summary ---
Author Organization [facility] Address [address] [place] [address] Care Team Providers Care Metal Mold Dresser Name Role Phone Lance Morejon MD Primary Care Provider [phone] Encounter Details Date Type Department Care Team (Latest Contact Info) Description 08/13/2005 Outpatient Historical [facility] Medicine [address] [address] Radha Slater, TACK CLEANER NO ADDRESS ON FILE [place] (Primary Dx); NAUSEA WITH VOMITING; DIARRHEA NOS Social History Tobacco Use Types Packs/Day Years Used Date Smoking Tobacco: Never Assessed Comments Unknown Sex and Gender Information Value Date Recorded Sex Assigned at Not on file Legal Sex Female 3:00 AM OCCUPATIONAL THERAPY TEACHER Gender Identity Not on file Sexual Orientation Not on file documented as of this encounter Plan of Treatment Not on file documented as of this encounter Visit Diagnoses Diagnosis Lumbago- Primary Nausea with vomiting Diarrhea documented in this encounter Care Teams Metal Mold Dresser Relationship Specialty Start Date End Date Lance Morejon MD [address] [place] [address] PCP - General 02/13/08 documented as of this encounter
--- OUTSIDE RECORDS SUMMARY | 2025-08-28 17:39 | XMS_ITS | Encounter Summary ---
Author Organization [facility] Address [address] [place] [address] Care Team Providers Care Hard Metals Engraver Hand Name Role Phone Ru Joel MD Primary Care Provider [phone] Encounter Details Date Type Department Care Team (Latest Contact Info) Description 10/26/2024 Results Follow-Up [facility] Family Medicine [address] [address] Ru Joel MD [address], [place] [address] URINE CULTURE, COMPREHENSIVE METABOLIC PANEL, CBC WITHOUT DIFFERENTIAL, MISCELLANEOUS LAB TEST Social History Tobacco Use Types Packs/Day Years Used Date Smoking Tobacco: Every Day Cigarettes Passive Smoke Exposure: Current Smokeless Tobacco: Never Comments:Quit smoking: Down to three a day Alcohol Use Standard Drinks/Week Comments No 0 (1 standard drink = 0.6 oz pur e alcohol) Feeling Safe Answer Date Recorded Are you in a relationship wi th someone who hurts you emotionally and/or physically? No 05/17/2024 Food Insecurity Answer Date Recorded Social/Environmental Concerns No concerns Transportation Needs Answer Date Record ed Social/Environmental Concerns No concerns Housing Stability Answer Date Recorded Social/Environmental Concerns No concerns Utility Needs Answer Date Recorded Social/Environmental Concerns No concerns Comments Yes Sex and Gender Information Value Date Recorded Sex Assigned at Not on file Legal Sex Female 1:48 PM DIETITIAN TEACHER Gender Identity Not on file Sexual Orientation Not on file documented as of this encounter Plan of Treatment Not on file documented as of this encounter Visit Diagnoses Not on filedocumented in this encounter Care Teams Hard Metals Engraver Hand Relationship Specialty Start Date End Date Ru Joel MD [address] [address] PCP - General Family Practice 08/17/24 documented as of this encounter
--- OUTSIDE RECORDS SUMMARY | 2025-08-28 17:39 | XMS_ITS | Encounter Summary ---
Author Organization [facility] Address [address] [place] [address] Care Team Providers Care Diamond Sizer Name Role Phone Lance Morejon MD Primary Care Provider [phone] Encounter Details Date Type Department Care Team (Latest Contact Info) Description 07/01/2003 Outpatient Historical [facility] Medicine [address] [address] Luis Santos MD NO ADDRESS ON FILE ACUTE SINUSITIS NOS (Primary Dx); HEADACHE Social History Tobacco Use Types Packs/Day Years Used Date Smoking Tobacco: Never Assessed Comments Unknown Sex and Gender Information Value Date Recorded Sex Assigned at Not on file Legal Sex Female 3:00 AM BASTING PULLER Gender Identity Not on file Sexual Orientation Not on file documented as of this encounter Plan of Treatment Not on file documented as of this encounter Visit Diagnoses Diagnosis Acute sinusitis, unspecified- Primary Headache(784.0) Headache documented in this encounter Care Teams Diamond Sizer Relationship Specialty Start Date End Date Lance Morejon MD [address] [place] [address] PCP - General 02/13/08 documented as of this encounter
--- OUTSIDE RECORDS SUMMARY | 2025-08-28 17:39 | XMS_ITS | Encounter Summary ---
Author Organization [facility] Address [address] [place] [address] Care Team Providers Care Injection Molding Supervisor Name Role Phone Lance Morejon MD Primary Care Provider [phone] Encounter Details Date Type Department Care Team (Latest Contact Info) Description 06/25/2002 Outpatient Historical [facility] Medicine [address] [address] Luis Santos MD NO ADDRESS ON FILE UNS ASTHMA WOSTATUS ASTHMATICUS (Primary Dx); OTITIS MEDIA NOS; ACUTE URI NOS Social History Tobacco Use Types Packs/Day Years Used Date Smoking Tobacco: Never Assessed Comments Unknown Sex and Gender Information Value Date Recorded Sex Assigned at Not on file Legal Sex Female 3:00 AM MULTINEEDLE SHIRRER Gender Identity Not on file Sexual Orientation Not on file documented as of this encounter Plan of Treatment Not on file documented as of this encounter Visit Diagnoses Diagnosis Unspecified asthma(493.90)- Primary Unspecified asthma Unspecified otitis media Acute upper respiratory infections of unspecified site documented in this encounter Care Teams Injection Molding Supervisor Relationship Specialty Start Date End Date Lance Morejon MD [address] [place] [address] PCP - General 02/13/08 documented as of this encounter
--- OUTSIDE RECORDS SUMMARY | 2025-08-28 17:39 | XMS_ITS | Encounter Summary ---
Author Organization [facility] Address [address] [place] [address] Care Team Providers Care Paper Products Machine Operator Name Role Phone Ru Joel MD Primary Care Provider [phone] Encounter Details Date Type Department Care Team (Late st Contact Info) Description 08/27/2025 External Device Data [facility] ABSTRACTION Provider, Abstract NO ADDRESS ON FILE Social History Tobacco Use Types Packs/Day Years [...] who hurts you emotionally and/or physically? No 04/03/2025 Food Insecurity Answer Date Recorded Patient needs follow up regardin 01/23/2025 Transportation Needs Answer Date Record ed Patient needs follow up regardin 01/23/2025 Housing Stability Answer Date Recorded Social/Environmental Concerns No concerns Utility Needs Answer Date Recorded Patient needs follow up regardin 01/23/2025 Comments No Sex and Gender Information Value Date Recorded Sex Assigned at Not on file Legal Sex Female 1:48 PM DIRECTOR OF ENROLLMENT Gender Identity Not on file Sexual Orientation Not on file documented as of this encounter Plan of Treatment Not on file documented as of this encounter Visit Diagnoses Not on filedocumented in this encounter Care Teams Paper Products Machine Operator Relationship Specialty Start Date End Date Ru Joel MD [address] [place] [phone] PCP - General Family Practice 08/17/24 documented as of this encounter
--- OUTSIDE RECORDS SUMMARY | 2025-08-28 17:39 | XMS_ITS | Encounter Summary ---
Author Organization [facility] Address [address] [place] [address] Care Team Providers Care Inspecting Machine Adjuster Name Role Phone Lance Morejon MD Primary Care Provider [phone] Encounter Details Date Type Department Care Team (Latest Contact Info) Description 04/02/2008 Outpatient Historical [address] [address] Raul Murillo MD [address] [place] [address] Supervision of Other Normal Social History Tobacco Use Types Packs/Day Years Used Date Smoking Tobacco: Never Assessed Comments Yes Sex and Gender Information Value Date Recorded Sex Assigned at Not on file Legal Sex Female 3:00 AM ADVANCED NURSING PROFESSOR Gender Identity Not on file Sexual Orientation Not on file documented as of this encounter Plan of Treatment Not on file documented as of this encounter Procedures Procedure Name Priority Date/Time Associated Diagnosis Comments GC, GENITAL Routine 04/02/2008 2:08 PM CDT CHLAMYDIA, GENITAL Routine 04/02/2008 2: 08 PM CDT PATHOLOGY Routine 04/02/2008 1:08 AM CDT documented in this encounter Results * GC DNA AMPLIFICATION (04/02/2008 2:08 PM CDT) FINAL REPORT DNA Amplification Assay: negative for Neisseria gonorrhoeae This procedure is approved for testing only on endocervical and male urethral swab specimens and male urine. The use of specimens from any other body site has not been validated. INTERFACE SYSTEM Specimen from genital system (specimen) CERVIX UTERI STRUCTURE / Unknown 04/02/2008 2:08 PM CDT 04/03/2008 2:06 PM CDT Raul Murillo MD MICROBIOLOGY - GENERAL ORDERA BLES Final Result Performing Organization Address [facility] Phone Number INTERFACE SYSTEM Refer to clinic/hospital department * CHLAMYDIA DNA AMPLIFICATION (04/02/2008 2:08 PM CDT) Pathologist [facility] FINAL REPORT DNA Amplification Assay: negative for Chlamydia trachomatis * This procedure is approved for testing only on endocervical and male urethral swab specimens and urine. The use of specimens from any other body site has not been validated. INTERFACE SYSTEM Specimen from genital system (specimen) CERVIX UTERI STRUCTURE / Unknown 04/02/2008 2:08 PM CDT 04/03/2008 2:06 PM CDT Raul Murillo MD MICROBIOLOGY GENERAL NORMAA BLEKirsten Final Result Performing Organization Address [facility] Phone Number INTERFACE SYSTEM Refer to clinic/hospital department * PATHOLOGY (04/02/2008 1:08 AM CDT) PATHOLOGY/CY TOLOGY REPORT [facility] Anatomic Pathology Dept [facility] [place] [address] Patient: PIERRE DIEGO Accn No: [id number] Collected: 04/02/2008 1:08:00 AM CYTOLOGY ASSISTANT CENTER MANAGER FINAL REPORT - - LEATHER STAMPER PAP History Specimen Source: Endocervical/Cervic al Last Pap Date: 2006 within normal limits Specimen Adequacy Satisfactory for interpretation. The smear shows sufficient numbers of endocervical or metaplastic cells. Diagnosis NEGATIVE FOR INTRAEPITHELIAL LESION OR MALIGNANCY. Shift in pam suggestive of bacterial vaginosis. Bone Worker 04/09/08 Completed by: ALYX BROWN (Electronically signed by) 04/09/08 Comment Routine follow-up is suggested. Important Info [...] treating physician in consultation with his/her patient. INTERFACE SYSTEM 04/02/2008 1:08 AM CDT us Raul Murillo MD PATHOLOGY/CYTOLOGY ORDERABLES Final Result INTERFACE SYSTEM Refer to clinic/hospital department documented in this encounter Visit Diagnoses Diagnosis Supervision of other normal documented in this encounter Care Teams Inspecting Machine Adjuster Relationship Specialty Start Date End Date Lance Morejon MD [address] [place] [address] PCP - General 02/13/08 documented as of this encounter
--- OUTSIDE RECORDS SUMMARY | 2025-08-28 17:39 | XMS_ITS | Encounter Summary ---
Author Organization [facility] Address [address] [place] [address] Care Team Providers Care Repairer Shoe Sticks Name Role Phone Lance Morejon MD Primary Care Provider [phone] Encounter Details Date Type Department Care Team (Latest Contact Info) Description 10/16/2004 Outpatient Historical [facility] Medicine [address] [address] Luis Santos MD NO ADDRESS ON FILE DEPRESSIVE DISORDER NEC (Primary Dx); ACNE NEC Social History Tobacco Use Types Packs/Day Years Used Date Smoking Tobacco: Never Assessed Comments Unknown Sex and Gender Information Value Date Recorded Sex Assigned at Not on file Legal Sex Female 3:00 AM BLIND AIDE Gender Identity Not on file Sexual Orientation Not on file documented as of this encounter Plan of Treatment Not on file documented as of this encounter Visit Diagnoses Diagnosis Depressive disorder, not elsewhere classified- Primary Other acne documented in this encounter Care Teams Repairer Shoe Sticks Relationship Specialty Start Date End Date Lance Morejon MD [address] [place] [address] PCP - General 02/13/08 documented as of this encounter
--- OUTSIDE RECORDS SUMMARY | 2025-08-28 17:39 | XMS_ITS | Encounter Summary ---
Author Organization [facility] Address [address] [place] [address] Care Team Providers Care Bookkeepers Supervisor Name Role Phone Lance Morejon MD Primary Care Provider [phone] Encounter Details Date Type Department Care Team (Latest Contact Info) Description 09/09/2005 Outpatient Historical [facility] Medicine [address] [address] Radha Slater, STRATEGY CONSULTANT NO ADDRESS ON FILE UNSPECIFIED VIRAL INFECTION (Primary Dx) Social History Tobacco Use Types Packs/Day Years Used Date Smoking Tobacco: Never Assessed Comments Unknown Sex and Gender Information Value Date Recorded Sex Assigned at Not on file Legal Sex Female 3:00 AM HARNESS WORKER Gender Identity Not on file Sexual Orientation Not on file documented as of this encounter Plan of Treatment Not on file documented as of this encounter Visit Diagnoses Diagnosis Unspecified viral infection, in conditions classified elsewhere and of unspecified site- Primary documented in this encounter Care Teams Bookkeepers Supervisor Relationship Specialty Start Date End Date Lance Morejon MD [address] [place] [address] PCP - General 02/13/08 documented as of this encounter
--- OUTSIDE RECORDS SUMMARY | 2025-08-28 17:39 | XMS_ITS | Encounter Summary ---
Author Organization [facility] Address [address] [place] [address] Care Team Providers Care Steel Chipper Name Role Phone Lance Morejon MD Primary Care Provider [phone] Encounter Details Date Type Department Care Team (Latest Contact Info) Description 11/15/2002 Outpatient Historical [facility] Medicine [address] [address] Luis Santos MD NO ADDRESS ON FILE ACUTE URI NOS (Primary Dx); UNS ASTHMA WOSTATUS ASTHMATICUS; Pneumococcal pneumonia Social History Tobacco Use Types Packs/Day Years Used Date Smoking Tobacco: Never Assessed Comments Unknown Sex and Gender Information Value Date Recorded Sex Assigned at Not on file Legal Sex Female 3:00 AM MUSICAL STRING MAKER Gender Identity Not on file Sexual Orientation Not on file documented as of this encounter Plan of Treatment Not on file documented as of this encounter Visit Diagnoses Diagnosis Acute upper respiratory infections of unspecified site- Primary Unspecified asthma(493.90) Unspecified asthma Pneumococcal pneumonia Pneumococcal pneumonia (streptococcus pneumoniae pneumonia) documented in this encounter Care Teams Steel Chipper Relationship Specialty Start Date End Date Lance Morejon MD [address] [place] [address] PCP - General 02/13/08 documented as of this encounter
--- OUTSIDE RECORDS SUMMARY | 2025-08-28 17:39 | XMS_ITS | Encounter Summary ---
Author Organization [facility] Address [address] [place] [address] Care Team Providers Care Boat Cleaning Supervisor Name Role Phone Lance Morejon MD Primary Care Provider [phone] Encounter Details Date Type Department Care Team (Latest Contact Info) Description 07/21/1998 Outpatient Historical [facility] [address] [phone] Vel Ramos MD [address] [place] [phone] Unspecified otitis media (Primary Dx); Acute pharyngitis; Allergic rhinitis, cause unspecified; Acute tonsillitis Social History Tobacco Use Types Packs/Day Years Used Date Smoking Tobacco: Never Assessed Comments Unknown Sex and Gender Information Value Date Recorded Sex Assigned at Not on file Legal Sex Female 3:00 AM GRAPPLE YARDER OPERATOR Gender Identity Not on file Sexual Orientation Not on file documented as of this encounter Plan of Treatment Not on file documented as of this encounter Visit Diagnoses Diagnosis Unspecified otitis media- Primary Acute pharyngitis Allergic rhinitis, cause unspecified Acute tonsillitis documented in this encounter Care Teams Boat Cleaning Supervisor Relationship Specialty Start Date End Date Lance Morejon MD [address] [place] [phone] PCP - General 02/13/08 documented as of this encounter
--- OUTSIDE RECORDS SUMMARY | 2025-08-28 17:39 | XMS_ITS | Encounter Summary ---
Author Organization [facility] Address [address] [place] [address] Care Team Providers Care Senior Engineering Team Leader Name Role Phone Lance Morejon MD Primary Care Provider [phone] Encounter Details Date Type Department Care Team (Latest Contact Info) Description 07/12/2002 Outpatient Historical [facility] Medicine [address] [address] Luis Santos MD NO ADDRESS ON FILE VAGINITIS NOS (Primary Dx) Social History Tobacco Use Types Packs/Day Years Used Date Smoking Tobacco: Never Assessed Comments Unknown Sex and Gender Information Value Date Recorded Sex Assigned at Not on file Legal Sex Female 3:00 AM TACK CUTTER Gender Identity Not on file Sexual Orientation Not on file documented as of this encounter Plan of Treatment Not on file documented as of this encounter Visit Diagnoses Diagnosis Vaginitis and vulvovaginitis, unspecified- Primary documented in this encounter Care Teams Senior Engineering Team Leader Relationship Specialty Start Date End Date Lance Morejon MD [address] [place] [address] PCP - General 02/13/08 documented as of this encounter
--- OUTSIDE RECORDS SUMMARY | 2025-08-28 17:39 | XMS_ITS | Encounter Summary ---
Author Organization [facility] Address [address] [place] [address] Care Team Providers Care Windows Support Engineer Name Role Phone Lance Morejon MD Primary Care Provider [phone] Encounter Details Date Type Department Care Team (Latest Contact Info) Description 02/16/2005 Outpatient Historical [facility] Medicine [address] [address] Radha Slater, VETERANS' COORDINATOR NO ADDRESS ON FILE PAIN IN THORACIC SPINE (Primary Dx); DEPRESSIVE DISORDER NEC; GENERALIZED ANXIETY DIS Social History Tobacco Use Types Packs/Day Years Used Date Smoking Tobacco: Never Assessed Comments Unknown Sex and Gender Information Value Date Recorded Sex Assigned at Not on file Legal Sex Female 3:00 AM PREMIUM CARD CANCELLATION CLERK Gender Identity Not on file Sexual Orientation Not on file documented as of this encounter Plan of Treatment Not on file documented as of this encounter Visit Diagnoses Diagnosis Pain in thoracic spine- Primary Depressive disorder, not elsewhere classified Generalized anxiety disorder documented in this encounter Care Teams Windows Support Engineer Relationship Specialty Start Date End Date Lance Morejon MD [address] [place] [address] PCP - General 02/13/08 documented as of this encounter
--- OUTSIDE RECORDS SUMMARY | 2025-08-28 17:39 | XMS_ITS | Encounter Summary ---
Author Organization [facility] Address [address] [place] [address] Care Team Providers Care Project Lead Name Role Phone Lance Morejon MD Primary Care Provider [phone] Encounter Details Date Type Department Care Team (Latest Contact Info) Description 07/30/2005 Outpatient Historical [facility] [address] [place] [address] Mao Jensen Jr., MD [address] [place] [address] 248 [facility] [address] [place] [phone] CERVICALGIA (Primary Dx) Social History Tobacco Use Types Packs/Day Years Used Date Smoking Tobacco: Never Assessed Comments Unknown Sex and Gender Information Value Date Recorded Sex Assigned at Not on file Legal Sex Female 3:00 AM WATCH MANUFACTURING SUPERVISOR Gender Identity Not on file Sexual Orientation Not on file documented as of this encounter Plan of Treatment Not on file documented as of this encounter Visit Diagnoses Diagnosis Cervicalgia- Primary documented in this encounter Care Teams Project Lead Relationship Specialty Start Date End Date Lance Morejon MD [address] [place] [address] PCP - General 02/13/08 documented as of this encounter
--- OUTSIDE RECORDS SUMMARY | 2025-08-28 17:39 | XMS_ITS | Encounter Summary ---
Author Organization [facility] Address [address] [place] [address] Care Team Providers Care Type Soldering Machine Tender Name Role Phone Ru Joel MD Primary Care Provider [phone] Encounter Details Date Type Department Care Team [...] on file Legal Sex Female 1:48 PM SOCIETY REPORTER Gender Identity Not on file Sexual Orientation Not on file documented as of this encounter Plan of Treatment Not on file documented as of this encounter Visit Diagnoses Not on filedocumented in this encounter Care Teams Type Soldering Machine Tender Relationship Specialty Start Date End Date Ru Joel MD [address] [place] [phone] PCP - General Family Practice 08/17/24 documented as of this encounter
--- OUTSIDE RECORDS SUMMARY | 2025-08-28 17:39 | XMS_ITS | Encounter Summary ---
Author Organization [facility] Address [address] [place] [address] Care Team Providers Care Desktop Technician Name Role Phone Lance Morejon MD Primary Care Provider [phone] Encounter Details Date Type Department Care Team (Latest Contact Info) Description 06/28/2002 Outpatient Historical [facility] Medicine [address] [address] Luis Santos MD NO ADDRESS ON FILE VAGINITIS NOS (Primary Dx); ACUTE URI NOS Social History Tobacco Use Types Packs/Day Years Used Date Smoking Tobacco: Never Assessed Comments Unknown Sex and Gender Information Value Date Recorded Sex Assigned at Not on file Legal Sex Female 3:00 AM INTERNET PROJECT MANAGER Gender Identity Not on file Sexual Orientation Not on file documented as of this encounter Plan of Treatment Not on file documented as of this encounter Visit Diagnoses Diagnosis Vaginitis and vulvovaginitis, unspecified- Primary Acute upper respiratory infections of unspecified site documented in this encounter Care Teams Desktop Technician Relationship Specialty Start Date End Date Lance Morejon MD [address] [place] [address] PCP - General 02/13/08 documented as of this encounter
--- OUTSIDE RECORDS SUMMARY | 2025-08-28 17:39 | XMS_ITS | Encounter Summary ---
Author Organization [facility] Address [address] [place] [address] Care Team Providers Care Scientific Diver Name Role Phone Lance Morejon MD Primary Care Provider [phone] Encounter Details Date Type Department Care Team (Latest Contact Info) Description 10/27/2005 Outpatient Historical [facility] Medicine [address] [address] Mao Jensen Jr., MD [address] [place] [address] 248 [facility] [address] [place] [address] CONJUNCTIVITIS NEC (Primary Dx); STOMACH FUNCTION DIS NEC Social History Tobacco Use Types Packs/Day Years Used Date Smoking Tobacco: Never Assessed Comments Unknown Sex and Gender Information Value Date Recorded Sex Assigned at Not on file Legal Sex Female 3:00 AM EPIC [facility] Gender Identity Not on file Sexual Orientation Not on file documented as of this encounter Plan of Treatment Not on file documented as of this encounter Visit Diagnoses Diagnosis Other conjunctivitis- Primary Dyspepsia and other specified disorders of function of stomach documented in this encounter Care Teams Scientific Diver Relationship Specialty Start Date End Date Lance Morejon MD [address] [place] [address] PCP - General 02/13/08 documented as of this encounter
--- OUTSIDE RECORDS SUMMARY | 2025-08-28 17:39 | XMS_ITS | Encounter Summary ---
Author Organization [facility] Address [address] [place] [address] Care Team Providers Care Cell Reliner Name Role Phone Lance Morejon MD Primary Care Provider [phone] Encounter Details Date Type Department Care Team (Latest Contact Info) Description 07/16/2005 Outpatient Historical [facility] Medicine [address] [address] Radha Slater, RATE EXAMINER NO ADDRESS ON FILE ACUTE PHARYNGITIS (Primary Dx); ANXIETY STATE NOS Social History Tobacco Use Types Packs/Day Years Used Date Smoking Tobacco: Never Assessed Comments Unknown Sex and Gender Information Value Date Recorded Sex Assigned at Not on file Legal Sex Female 3:00 AM PARAEDUCATOR Gender Identity Not on file Sexual Orientation Not on file documented as of this encounter Plan of Treatment Not on file documented as of this encounter Visit Diagnoses Diagnosis Acute pharyngitis- Primary Anxiety state, unspecified documented in this encounter Care Teams Cell Reliner Relationship Specialty Start Date End Date Lance Morejon MD [address] [place] [address] PCP - General 02/13/08 documented as of this encounter
--- OUTSIDE RECORDS SUMMARY | 2025-08-28 17:39 | XMS_ITS | Encounter Summary ---
Author Organization [facility] Address [address] [place] [address] Care Team Providers Care Banana Handler Name Role Phone Lance Morejon MD Primary Care Provider [phone] Encounter Details Date Type Department Care Team (Latest Contact Info) Description 06/14/2006 Outpatient Historical [facility] Medicine [address] [address] Radha Slater, SKATE SHOP ATTENDANT NO ADDRESS ON FILE Menstrual Disorder NEC (Primary Dx) Social History Tobacco Use Types Packs/Day Years Used Date Smoking Tobacco: Never Assessed Comments Unknown Sex and Gender Information Value Date Recorded Sex Assigned at Not on file Legal Sex Female 3:00 AM MAGAZINE PUBLISHER Gender Identity Not on file Sexual Orientation Not on file documented as of this encounter Plan of Treatment Not on file documented as of this encounter Visit Diagnoses Diagnosis Other disorder of menstruation and other abnormal bleeding from female genital tract- Primary documented in this encounter Care Teams Banana Handler Relationship Specialty Start Date End Date Lance Morejon MD [address] [place] [address] PCP - General 02/13/08 documented as of this encounter
--- OUTSIDE RECORDS SUMMARY | 2025-08-28 17:39 | XMS_ITS | Encounter Summary ---
Author Organization [facility] Address [address] [place] [address] Care Team Providers Care Renewal Specialist Name Role Phone Lance Morejon MD Primary Care Provider [phone] Encounter Details Date Type Department Care Team (Latest Contact Info) Description 06/17/[address] [facility] [place] Medicine [address] [address] Luis Santos MD NO ADDRESS ON FILE HEADACHE (Primary Dx); ACUTE SINUSITIS NOS Social History Tobacco Use Types Packs/Day Years Used Date Smoking Tobacco: Never Assessed Comments Unknown Sex and Gender Information Value Date Recorded Sex Assigned at Not on file Legal Sex Female 3:00 AM EMPLOYMENT CLERK Gender Identity Not on file Sexual Orientation Not on file documented as of this encounter Plan of Treatment Not on file documented as of this encounter Visit Diagnoses Diagnosis Headache(784.0)- Primary Headache Acute sinusitis, unspecified documented in this encounter Care Teams Renewal Specialist Relationship Specialty Start Date End Date Lance Morejon MD [address] [place] [address] PCP - General 02/13/08 documented as of this encounter
--- OUTSIDE RECORDS SUMMARY | 2025-08-28 17:39 | XMS_ITS | Encounter Summary ---
Author Organization [facility] Address [address] [place] [address] Care Team Providers Care Surveillance Officer Name Role Phone Lance Morejon MD Primary Care Provider [phone] Encounter Details Date Type Department Care Team (Latest Contact Info) Description 12/26/2000 Outpatient Historical [facility] [place] [address] [address] Marissa Terrazas, DO [address] [place] [address] Acute upper respiratory infections of unspecified site (Primary Dx); Unspecified otitis media Social History Tobacco Use Types Packs/Day Years Used Date Smoking Tobacco: Never Assessed Comments Unknown Sex and Gender Information Value Date Recorded Sex Assigned at Not on file Legal Sex Female 3:00 AM DRAWING IN HAND Gender Identity Not on file Sexual Orientation Not on file documented as of this encounter Plan of Treatment Not on file documented as of this encounter Visit Diagnoses Diagnosis Acute upper respiratory infections of unspecified site- Primary Unspecified otitis media documented in this encounter Care Teams Surveillance Officer Relationship Specialty Start Date End Date Lance Morejon MD [address] [place] [address] PCP - General 02/13/08 documented as of this encounter
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
--- OUTSIDE RECORDS SUMMARY | 2025-08-28 17:39 | XMS_ITS | Encounter Summary ---
Author Organization [facility] Address [address] [place] [address] Care Team Providers Care Filament Coil Winder Name Role Phone Lance Morejon MD Primary Care Provider [phone] Encounter Details Date Type Department Care Team (Latest Contact Info) Description 04/22/2003 Outpatient Historical [facility] Medicine [address] [address] Luis Santos MD NO ADDRESS ON FILE PROTEINURIA (Primary Dx) Social History Tobacco Use Types Packs/Day Years Used Date Smoking Tobacco: Never Assessed Comments Unknown Sex and Gender Information Value Date Recorded Sex Assigned at Not on file Legal Sex Female 3:00 AM HUMANITIES AND LANGUAGES PROFESSOR Gender Identity Not on file Sexual Orientation Not on file documented as of this encounter Plan of Treatment Not on file documented as of this encounter Visit Diagnoses Diagnosis Proteinuria- Primary documented in this encounter Care Teams Filament Coil Winder Relationship Specialty Start Date End Date Lance Morejon MD [address] [place] [address] PCP - General 02/13/08 documented as of this encounter
--- OUTSIDE RECORDS SUMMARY | 2025-08-28 17:39 | XMS_ITS | Encounter Summary ---
Author Organization [facility] Address [address] [place] [address] Care Team Providers Care Ekg Tech Name Role Phone Lance Morejon MD Primary Care Provider [phone] Encounter Details Date Type Department Care Team (Latest Contact Info) Description 11/04/2004 Outpatient Historical [facility] Family [facility] [place] [address] [phone] Mao Jensen Jr., MD [address] [place] [address] [address] [place] [address] ACUTE URI NOS (Primary Dx) Social History Tobacco Use Types Packs/Day Years Used Date Smoking Tobacco: Never Assessed Comments Unknown Sex and Gender Information Value Date Recorded Sex Assigned at Not on file Legal Sex Female 3:00 AM CUSTOMER PRICING MANAGER Gender Identity Not on file Sexual Orientation Not on file documented as of this encounter Plan of Treatment Not on file documented as of this encounter Visit Diagnoses Diagnosis Acute upper respiratory infections of unspecified site- Primary documented in this encounter Care Teams Ekg Tech Relationship Specialty Start Date End Date Lance Morejon MD [address] [place] [address] PCP - General 02/13/08 documented as of this encounter
--- OUTSIDE RECORDS SUMMARY | 2025-08-28 17:39 | XMS_ITS | Encounter Summary ---
Author Organization [facility] Address [address] [place] [address] Care Team Providers Care Interior Design Principal Name Role Phone Lance Morejon MD Primary Care Provider [phone] Encounter Details Date Type Department Care Team (Latest Contact Info) Description 07/20/2002 Outpatient Historical [facility] Medicine [address] [address] Luis Santos MD NO ADDRESS ON FILE VAGINITIS NOS (Primary Dx) Social History Tobacco Use Types Packs/Day Years Used Date Smoking Tobacco: Never Assessed Comments Unknown Sex and Gender Information Value Date Recorded Sex Assigned at Not on file Legal Sex Female 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
--- OUTSIDE RECORDS SUMMARY | 2025-08-28 17:39 | XMS_ITS | Encounter Summary ---
Author Organization [facility] Address [address] [place] [address] Care Team Providers Care Offender Job Retention Specialist Name Role Phone Lance Morejon MD Primary Care Provider [phone] Encounter Details Date Type Department Care Team (Latest Contact Info) Description 11/19/2002 Outpatient Historical [facility] Medicine [address] [address] Luis Santos MD NO ADDRESS ON FILE PNEUMONIA, ORGANISM NOS (Primary Dx) Social History Tobacco Use Types Packs/Day Years Used Date Smoking Tobacco: Never Assessed Comments Unknown Sex and Gender Information Value Date Recorded Sex Assigned at Not on file Legal Sex Female 3:00 AM DAIRY QUALITY ASSURANCE OFFICER Gender Identity Not on file Sexual Orientation Not on file documented as of this encounter Plan of Treatment Not on file documented as of this encounter Visit Diagnoses Diagnosis Pneumonia, organism unspecified(486)- Primary Pneumonia, organism unspecified documented in this encounter Care Teams Offender Job Retention Specialist Relationship Specialty Start Date End Date Lance Morejon MD [address] [place] [address] PCP - General 02/13/08 documented as of this encounter
--- OUTSIDE RECORDS SUMMARY | 2025-08-28 17:39 | XMS_ITS | Encounter Summary ---
Author Organization [facility] Address [address] [place] [address] Care Team Providers Care [address] Man Name Role Phone Lance Morejon MD Primary Care Provider [phone] Encounter Details Date Type Department Care Team (Latest Contact Info) Description 09/03/2004 Outpatient [facility] Medicine [address] [address] Radha Slater, ADMINISTRATIVE APPEALS TRIBUNAL MEMBER NO ADDRESS ON FILE GENERALIZED ANXIETY DIS (Primary Dx); DEPRESSIVE DISORDER NEC Social History Tobacco Use Types Packs/Day Years Used Date Smoking Tobacco: Never Assessed Comments Unknown Sex and Gender Information Value Date Recorded Sex Assigned at Not on file Legal Sex Female 3:00 AM FLUID PUMP OPERATOR Gender Identity Not on file Sexual Orientation Not on file documented as of this encounter Plan of Treatment Not on file documented as of this encounter Visit Diagnoses Diagnosis Generalized anxiety disorder- Primary Depressive disorder, not elsewhere classified documented in this encounter Care Teams Drive Man Relationship Specialty Start Date End Date Lance Morejon MD [address] [place] [address] PCP - General 02/13/08 documented as of this encounter
--- OUTSIDE RECORDS SUMMARY | 2025-08-28 17:39 | XMS_ITS | Encounter Summary ---
Author Organization [facility] Address [address] [place] [address] Care Team Providers Care Atv Mechanic Name Role Phone Lance Morejon MD Primary Care Provider [phone] Encounter Details Date Type Department Care Team (Latest Contact Info) Description 05/29/2007 Outpatient Historical [facility] Medicine [address] [address] Radha Slater, CAMERA SUPERVISOR NO ADDRESS ON FILE Unspecified Vaginitis and Vulvovaginitis (Primary Dx) Social History Tobacco Use Types Packs/Day Years Used Date Smoking Tobacco: Never Assessed Comments Unknown Sex and Gender Information Value Date Recorded Sex Assigned at Not on file Legal Sex Female 3:00 AM BACK FILLER OPERATOR Gender Identity Not on file Sexual Orientation Not on file documented as of this encounter Plan of Treatment Not on file documented as of this encounter Visit Diagnoses Diagnosis Vaginitis and vulvovaginitis, unspecified- Primary documented in this encounter Care Teams Atv Mechanic Relationship Specialty Start Date End Date Lance Morejon MD [address] [place] [address] PCP - General 02/13/08 documented as of this encounter
--- OUTSIDE RECORDS SUMMARY | 2025-08-28 17:39 | XMS_ITS | Encounter Summary ---
Author Organization [facility] Address [address] [place] [address] Care Team Providers Care Rack Puller Name Role Phone Lacne Morejon MD Primary Care Provider [phone] Encounter Details Date Type Department Care Team (Latest Contact Info) Description 03/21/2003 Outpatient Historical [facility] Medicine [address] [address] Luis Santos MD NO ADDRESS ON FILE TOOTH DEVEL/ERUP DIS NOS (Primary Dx) Social History Tobacco Use Types Packs/Day Years Used Date Smoking Tobacco: Never Assessed Comments Unknown Sex and Gender Information Value Date Recorded Sex Assigned at Not on file Legal Sex Female 3:00 AM SHIFT COORDINATOR Gender Identity Not on file Sexual Orientation Not on file documented as of this encounter Plan of Treatment Not on file documented as of this encounter Visit Diagnoses Diagnosis Unspecified disorder of tooth development and eruption- Primary documented in this encounter Care Teams Rack Puller Relationship Specialty Start Date End Date Lance Morejon MD [address] [place] [address] PCP - General 02/13/08 documented as of this encounter
[2025-08-28 18:15] LABS: Hematocrit 34.3 % (36-47); Hemoglobin 11.60 g/dL (11.27-16.99); Mean Corpuscular HGB Conc 33.8 g/dL (30-55); Mean Corpuscular Hemoglobin 29.9 pg (27-33); Mean Corpuscular Volume 88.4 fl (85-98); Nucleated Red Blood Cells % 0 %; Platelet Count 123 10^3/cmm (157-399); Red Blood Count 3.88 10^6/uL (3.85-5.65); White Blood Count 10.43 10^3/uL (3.29-11.43)
--- NOTE | 2025-08-28 18:22 | W.ED.ABDPA2 ---
HPI - Abdominal Pain General: Chief Complaint: Abdominal Pain Stated Complaint: Fever/Low Rt abd pain Time Seen by Provider: 08/28/25 18:22 Source: patient Mode of arrival: wheelchair Limitations: no limitations History of Present Illness: Patient is a 35-year-old female who presents ED today along with her significant other for ration of right-sided abdominal pain. Patient states symptoms began about 4 days ago when she first began to notice pain in her right lower back. She states since then it has now radiated around into the right side of her abdomen. She states she feels nauseous but has not had any episodes of vomiting. No changes in bowel movements. No urinary symptoms. She is not having any flank pain. No history of urolithiasis. Patient still has her gallbladder and appendix. She states she has been running fevers at home as high as 104. Her pain is worse with movement. MD elicited complaint: abdominal pain Pertinent past history: none Onset (ago): day(s) Pain Consistency: constant Location: RUQ and RLQ Severity: severe Quality: stabbing and sharp Exacerbating factors: movement Relieving factors: nothing Associated Symptoms: Reports chills, fever(s) and nausea; Denies diarrhea, dysuria, heartburn, hematuria, syncope and vomiting Related Data Home Medications ?Medication ?Instructions ?Recorded ?Confirmed vit no.95-ferrous 1 tab PO DAILY 10/10/19 08/16/24 fumarate 28 mg-folic acid 800 mcg tablet () acetaminophen 325 mg tablet 325 mg PO QID PRN Pain 12/14/19 08/16/24 (Tylenol) buprenorphine 8 mg-naloxone 2 mg 1 tab sublingual DAILY 07/08/23 08/16/24 sublingual tablet Previous Rx's ?Medication ?Instructions ?Recorded acetaminophen 500 mg tablet 1,000 mg (2 x 500 mg) PO Q8H PRN 07/08/23 (Tylenol Extra Strength) pain #90 tabs clindamycin HCl 300 mg capsule 300 mg PO Q8H 7 days #21 caps 08/16/24 ciprofloxacin HCl 500 mg tablet 500 mg PO Q12H #20 tabs 08/28/25 (Cipro) ondansetron 4 mg disintegrating 4 mg PO Q8H PRN nausea and 08/28/25 tablet vomiting #14 tabs Allergies Allergy/AdvReac Type Severity Reaction Status Date / Time Penicillins Allergy ALGY-Hives Verified 08/28/25 17:43 Review of Systems Const: Reports: fever(s) and chills Eyes: Denies: change in vision or blurry vision Card: Denies: chest pain, palpitations, irregular heart rhythm, lightheadedness, syncope or dyspnea on exertion Resp: Denies: dyspnea, productive cough or pain on inspiration GI: Reports: abdominal pain and nausea; Denies: vomiting, heartburn or diarrhea : Denies: flank pain, dysuria or hematuria Musc: Denies: neck pain, back pain, extremity pain, extremity swelling or joint pain Skin/Breast: Denies: rash Neuro: Denies: headache(s), numbness in extremities, weakness in extremities or sensory changes PFSH ED PFSH: Medical History Intermittent palpitations Social History Smoking and tobacco/nicotine status: current every day tobacco/nicotine user Physical Exam Const: COMMON NORMALS: average body habitus, patient oriented x3, no limitations, alert and well nourished GENERAL APPEARANCE: cooperative and in distress (appears uncomfortable secondary to pain) Eye: COMMON NORMALS: no scleral icterus Resp: COMMON NORMALS: normal respiratory effort and clear to auscultation bilaterally AUSCULTATION: clear to auscultation bilaterally Cardio: COMMON NORMALS: regular rate and regular rhythm RATE: regular rate RHYTHM: regular rhythm GI: COMMON NORMALS: Normal to inspection, nondistended, normoactive bowel sounds present, Soft to palpation, No hepatosplenomegaly present and no masses INSPECTION: Yes normal to inspection AUSCULTATION: Yes normoactive bowel sounds PALPATION: Yes Soft to palpation, Yes Tenderness to palpation present (GI) Details: RLQ and RUQ, Yes Guarding due to palpation present (GI), No Rigid due to palpation and Yes No hepatosplenomegaly present : COMMON NORMALS: Yes no CVA tenderness BLADDER/KIDNEY EXAM: Yes no CVA tenderness Back/Pelvis: COMMON NORMALS: no CVA tenderness, thoracic and lumbar spine normal to inspection, no thoracic nor lumbar tenderness, thoraco-lumbar ROM normal and straight leg raise negative bilaterally Extremity: GENERAL: Yes normal exam except as noted Neuro: TRICIA COMA SCALE: document GCS findings Tricia coma scale eye opening: Spontaneous [place] coma scale verbal response: Orientated Tricia coma scale motor response: Obey commands Tricia coma scale total score: 15 COMMON NORMALS: patient oriented x3, moves all extremities, no focal motor deficits and no sensory deficits noted SENSORIUM/ORIENTATION: Yes alert Skin: COMMON NORMALS: no rashes or lesions noted GENERAL SKIN EXAM: no rashes or lesions noted Course Vital Signs: Vital signs: Vital Signs Temperature 98.2 F 08/28/25 17:35 Pulse Rate 97 08/28/25 20:18 Respiratory Rate 16 08/28/25 20:18 Blood Pressure 119/55 08/28/25 20:18 Pulse Oximetry 98 08/28/25 20:18 Oxygen Delivery Me thod Room Air 08/28/25 18:54 MDM - Abdominal Pain Medical Decision Making Patient is a 35-year-old female here for complaint of back pain that has now moved around into her right abdomen. Symptoms started 4 days ago. She has felt nauseous and has had fevers. Later did endorse dysuria stating she thought she had a UTI but got rid of it by drinking cranberry juice. Patient had a negative gallbladder ultrasound. CT abdomen and pelvis suggesting pyelonephritis which fits her clinical presentation. Her blood work showing a normal white count. She has a normal lactic. Kidney functions are normal. She has no obstructing stone. UA with a cloudy appearance, 2+ blood, positive nitrates, 2+ leukocyte esterase and greater than 100 WBCs. Patient wants to go home. She was given IV Rocephin and fluids prior to discharge. Patient will be given antibiotics to take tomorrow as pharmacies are closed. She can fill her prescription on Tuesday. Strict return to ED precautions discussed. Differential Diagnosis Likely abdominal pain, acute appendicitis, calculus of kidney, constipation, diverticulitis, gastroenteritis, pancreatitis and small bowel obstruction Medical Records I reviewed the patient's medical records. Lab Data I reviewed the patient's lab results. 08/28/25 18:09 08/28/25 18:09 Labs/Radiology: Radiology Impressions Gallbladder Ultrasound 08/28/25 18:29 IMPRESSION: 1. Negative for cholelithiasis or cholecystitis. 2. Right kidney increased echogenicity suggestive of medical renal disease, please correlate clinically. Abdomen/Pelvis CT 08/28/25 18:37 IMPRESSION: 1. Mild right hydronephrosis and hydroureter with mild enlargement of the kidney, please correlate for pyelonephritis.. Negative for obstructing lesion seen. 2. Prominent fluid in the small bowel, free fluid for a gastroenteritis. 3. Bibasilar atelectasis. Laboratory Results WBC 10.43 10^3/uL (3.29-11.43) 08/28/25 18:09 RBC 3.88 10^6/uL (3.85-5.65) 08/28/25 18:09 Hgb 11.60 g/dL (11.27-16.99) 08/28/25 18:09 Hct 34.3 % (36-47) L 08/28/25 18:09 MCV 88.4 fl (85-98) 08/28/25 18:09 MCH 29.9 pg (27-33) 08/28/25 18:09 MCHC 33.8 g/dL (30-55) 08/28/25 18:09 RDW 12.6 % (12.1-15.1) 08/28/25 18:09 Plt Count 123 10^3/cmm (157-399) L 08/28/25 18:09 MPV 11.6 fL (7.4-10.4) H 08/28/25 18:09 Neut % (Auto) 85.6 % 08/28/25 18:09 Lymph % (Auto) 7.2 % 08/28/25 18:09 [place] % (Auto) 6.1 % 08/28/25 18:09 Eos % (Auto) 0.3 % 08/28/25 18:09 Baso % (Auto) 0.4 % 08/28/25 18:09 Neut # (Auto) 8.93 10^3/uL (1.8-7.7) H 08/28/25 18:09 Lymph # (Auto) 0.8 10^3/uL (0.8-4.8) 08/28/25 18:09 [place] # (Auto) 0.6 10^3/uL (0.2-0.9) 08/28/25 18:09 Eos # (Auto) 0.0 10^3/uL (0.0-0.8) 08/28/25 18:09 Baso # (Auto) 0.0 10^3/uL (0.0-0.1) 08/28/25 18:09 Nucleated RBC % (auto) 0 % 08/28/25 18:09 Nucleated RBCs # 0.0 /100WBC 08/28/25 18:09 Sodium 137 mmol/L (136-145) 08/28/25 18:09 Potassium 3.2 mmol/L (3.5-5.1) L 08/28/25 18:09 Chloride 98 mmol/L (98-107) 08/28/25 18:09 Carbon Dioxide 24 mmol/L (22-29) 08/28/25 18:09 Anion Gap 18.2 (5-19) 08/28/25 18:09 BUN 8 mg/dL (6-20) 08/28/25 18:09 Creatinine 0.7 mg/dL (0.5-0.9) 08/28/25 18:09 GFR Calculation 95.8 mL/min (90-130) 08/28/25 18:09 Glucose 156 mg/dL (65-115) H 08/28/25 18:09 Calculated Osmolality 286 mOsm/kg (285-295) 08/28/25 18:09 Lactic Acid 1.1 mmol/L (0.5-2.2) 08/28/25 18:09 Calcium 8.9 mg/dL (8.5-10.5) 08/28/25 18:09 Total Bilirubin 0.5 mg/dL (0.15-1.2) 08/28/25 18:09 AST 14 U/L (0-32) 08/28/25 18:09 ALT 15 U/L (0-33) 08/28/25 18:09 Alkaline Phosphatase 86 U/L (35-105) 08/28/25 18:09 Total Protein 7.0 g/dL (6.6-8.7) 08/28/25 18:09 Albumin 3.6 g/dL (3.5-5.2) 08/28/25 18:09 Globulin 3.4 g/dL (1.3-4.6) 08/28/25 18:09 Lipase 8 U/L (13-60) L 08/28/25 18:09 HCG, Qual Negative (Negative) 08/28/25 18:09 Urine Color Yellow (Yellow) 08/28/25 18:20 Urine Appearance Cloudy (CLEAR) A 08/28/25 18:20 Urine pH 6.5 (5-7) 08/28/25 18:20 Ur Specific [place] 1.009 (1.005-1.030) 08/28/25 18:20 Urine Protein 2+ (Negative) A 08/28/25 18:20 Urine Glucose (UA) Negative (Normal) 08/28/25 18:20 Urine Ketones Negative (Negative) 08/28/25 18:20 Urine Blood 2+ (Negative) A 08/28/25 18:20 Urine Nitrate Positive (Negative) A 08/28/25 18:20 Urine Bilirubin Negative (Negative) 08/28/25 18:20 Urine Urobilinogen 1.0 mg/dL (Negative) 08/28/25 18:20 Ur Leukocyte Esterase 2+ (Negative) A 08/28/25 18:20 Urine RBC 3-5 /hpf (0-2) 08/28/25 18:20 Urine WBC >100 /hpf (0-5) H 08/28/25 18:20 Ur Squamous Epith Cells 6-10 /hpf (0-5) 08/28/25 18:20 Amorphous Sediment Not Reportable 08/28/25 18:20 Urine Bacteria 4+ /hpf (NONE) H 08/28/25 18:20 Hyaline Casts 2.46 /lpf 08/28/25 18:20 All radiology interpretation(s) finalized by discharge Discharge Plan Discharge Patient Disposition: Home Clinical Impression: Pyelonephritis Condition: Stable Prescriptions: New ciprofloxacin HCl [Cipro] 500 mg tablet 500 mg PO Q12H Qty: 20 0RF ondansetron 4 mg tablet,disintegrating 4 mg PO Q8H PRN (Reason: nausea and vomiting) Qty: 14 0RF No Action buprenorphine-naloxone 8-2 mg tablet, sublingual 1 tab sublingual DAILY acetaminophen [Tylenol Extra Strength] 500 mg tablet 1,000 mg PO Q8H PRN (Reason: pain) Qty: 90 1RF clindamycin HCl 300 mg capsule 300 mg PO Q8H 7 Days Qty: 21 0RF Tylenol 325 mg Tablet 325 mg PO QID PRN (Reason: Pain) PNV no.95-ferrous fumarate-FA [] 28 mg iron- 800 mcg Tablet 1 tab PO DAILY Discharge Orders: Discharge ED (Routine); Ordered 08/28/25 Ordered By: Yolanda Dale Referrals: Joey Manriquez MD [Primary Care Provider, Family Practice] Patient Instructions: Kidney Infection (ED), Abdominal Pain (ED), Patient Portal & [facility] Instructions, Pyelonephritis Activity Restrictions/Additional Instructions: As we discussed, we will send you home with antibiotics for tomorrow since pharmacies will be closed. Please fill your prescription Tuesday morning and take as directed making sure you are not missing any doses. Please drink plenty of fluids (water). May continue to take Tylenol and Ibuprofen as needed for discomfort. As we discussed you need to return to the emergency department for worsening or uncontrollable pain, repetitive episodes of vomiting, inability to tolerate your antibiotics, worsening or uncontrollable fevers, generally feeling worse or unwell, or any other concerns you may have. Print Language: [place] Coding Level of Care Code ED Character Actress for Messi Ramírez
[2025-08-28 18:27] VITALS: O2SAT 100
--- NOTE | 2025-08-28 18:29 | USR_ITS ---
PROCEDURE INFORMATION: Exam: US Abdomen, Limited; Right Upper Quadrant Exam date and time: 08/28/2025 6:54 PM Age: 35 years old Clinical indication: Abdominal pain; Flank; Right; Additional info: Ruq pain, fevers, nausea TECHNIQUE: Imaging protocol: Real time ultrasound of the abdomen with image documentation. Limited exam focused on the right upper quadrant. COMPARISON: US OB limited [id number] 12/14/2019 6:20 PM FINDINGS: Liver: Normal. No masses. Gallbladder: Normal. No gallstones. There is no gallbladder wall thickening. Biliary ducts: Normal. No stones. No dilation. Pancreas: Visualized pancreas is unremarkable. Right kidney: Right kidney increased echogenicity suggestive of medical renal disease, please correlate clinically. US/US gall bladder [id number] IMPRESSION: 1. Negative for cholelithiasis or cholecystitis. 2. Right kidney increased echogenicity suggestive of medical renal disease, please correlate clinically.
[2025-08-28 18:31] LABS: HCG, Serum Qual Negative (Negative)
[2025-08-28 18:32] LABS: Glucose Urine UA Negative (Normal); Nitrate Urine Positive (Negative); Specific Gravity, Urine 1.009 (1.005-1.030)
[2025-08-28 18:34] LABS: Add Urine Microscopic? YES
[2025-08-28 18:36] LABS: Alanine Aminotransferase 15 U/L (0-33); Albumin Level 3.6 g/dL (3.5-5.2); Alkaline Phosphatase 86 U/L (35-105); Anion Gap 18.2 (5-19); Aspartate Amino Transferase 14 U/L (0-32); Blood Urea Nitrogen 8 mg/dL (6-20); Calcium 8.9 mg/dL (8.5-10.5); Carbon Dioxide 24 mmol/L (22-29); Chloride 98 mmol/L (98-107); Globulin 3.4 g/dL (1.3-4.6); Glucose 156 mg/dL (65-115); Lipase 8 U/L (13-60); Osmolality Calculated 286 mOsm/kg (285-295); Potassium 3.2 mmol/L (3.5-5.1); Sodium 137 mmol/L (136-145); Total Protein 7.0 g/dL (6.6-8.7)
--- NOTE | 2025-08-28 18:37 | CTR_ITS ---
PROCEDURE INFORMATION: Exam: CT Abdomen And Pelvis Without Contrast Exam date and time: 08/28/2025 7:22 PM Age: 35 years old Clinical indication: Abdominal pain; Localized; Right lower quadrant (rlq); Additional info: R sided abdominal pain, fevers, nausea TECHNIQUE: Imaging protocol: Computed tomography of the abdomen and pelvis without contrast. Radiation optimization: All CT scans at this facility use at least one of these dose optimization techniques: automated exposure control; mA and/or kV adjustment per patient size (includes targeted exams where dose is matched to clinical indication); or iterative reconstruction. COMPARISON: US gall bladder [id number] 08/28/2025 6:54 PM RADIATION DOSE METRICS: Total DLP (mGy-cm): 376.84 FINDINGS: Lungs: Bibasilar atelectasis. Liver: Normal. No mass. Gallbladder and biliary ducts: Normal. No calcified stones. No ductal dilation. Pancreas: Normal. No ductal dilation. Spleen: Normal. No splenomegaly. Adrenal glands: Normal. No mass. Kidneys and ureters: Mild right hydronephrosis and hydroureter with mild enlargement of the kidney, please correlate for pyelonephritis.. Negative for obstructing lesion seen. Stomach and bowel: Prominent fluid in the small bowel, free fluid for a gastroenteritis. Appendix: No evidence of appendicitis. Intraperitoneal space: Unremarkable. No free air. No significant fluid collection. Vasculature: Unremarkable. No abdominal aortic aneurysm. Lymph nodes: Unremarkable. No enlarged lymph nodes. Urinary bladder: Unremarkable as visualized. Reproductive: Unremarkable as visualized. Bones/joints: Unremarkable. No acute fracture. Soft tissues: Unremarkable. CT/CT kidney stone [id number] IMPRESSION: 1. Mild right hydronephrosis and hydroureter with mild enlargement of the kidney, please correlate for pyelonephritis.. Negative for obstructing lesion seen. 2. Prominent fluid in the small bowel, free fluid for a gastroenteritis. 3. Bibasilar atelectasis.
[2025-08-28 18:54] VITALS: BP 113/60; PULSE 99; O2SAT 100
[2025-08-28 19:44] LABS: Lactic Sepsis W/Reflex 1.1 mmol/L (0.5-2.2)
[2025-08-28] MEDS: ondansetron 2 mg/ML SDV 2 mL 4 MG IVP (20:03)
[2025-08-28] MEDS: cefTRIAXone 1,000 mg SDV 1000 MG IVP (20:10)
[2025-08-28 20:18] VITALS: BP 119/55; PULSE 97; RESP 16; O2SAT 98
[2025-08-28 21:14] VITALS: BP 106/50; PULSE 92; RESP 16; O2SAT 97
== END 2025-08-28 21:16 | disposition home or self-care (01) ==
PROVIDERS: Emergency Provider Physician Assistant
DX: N12 Tubulo-interstitial nephritis, not specified as acute or chronic (principal); Z72.0 Tobacco use
CPT/HCPCS: 36415; 74176; 76705; 80053; 81001; 83605; 83690; 84703; 85025; 87077; 87086; 87186; 96374; 96375; 99285; J0696; J1885; J2405; J7030; J9999